=== PATIENT | male | born 1935 | race Caucasian/White ===

== ENCOUNTER 2016-11-27 15:15 | Inpatient (IN) | payer OTHER ==
--- NOTE | 2016-11-27 16:25 | PDOC ---
History of Present Illness <Eli Rand - Last Filed: 11/27/16 20:18> - History of Present Illness Initial Comments: 11/27/16 18:07 The patient is a 72 year old male, with a significant past medical history of non-insulin dependent diabetes, hypertension, CAD s/p stents x2 s/p CABG x 3 ( 2012), hyperlipidemia, BPH, and osteoarthritis, who presents to the emergency department with hematuria noticed 4 days ago and left lower quadrant abdominal pain today. The patient reports noticing blood in his urine 4 days ago, but denies any hematuria since. The patient reports experiencing intermittent LLQ pain prior to the hematuria, but was prompted to come to the ED when the LLQ pain returned today. The patient denies any flank pain or radiation of pain to his groin. He reports his last normal BM was yesterday. He denies chest pain, shortness of breath, headache and dizziness. He denies fever, chills, nausea, vomit, diarrhea and constipation. He denies dysuria, frequency, urgency. Allergies: NKDA Social history: daily 1.5 pack tobacco smoker +65 years, occasional alcohol consumption PCP - Dr. Symone Lin <Amanda Fajardo - Last Filed: 11/27/16 20:29> - General Chief Complaint: Pain Stated Complaint: BLOOD IN THE URINE,STOMACH PAIN Time Seen by Provider: 11/27/16 16:23 Past History - Past Medical History Cardiac Disorders: Yes ([place] in 2005) Diabetes: Yes HTN: Yes Hypercholesterolemia: Yes - Surgical History Cardiac Surgery: Yes (stent(?)-patient not certain) Orthopedic Surgery: Yes (Both knee cartilage) - Psycho/Social/Smoking Cessation Hx Anxiety: No Suicidal Ideation: No Smoking Status: Yes Smoking History: Current every day smoker Have you smoked in the past 12 months: Yes Number of Cigarettes Smoked Daily: 40 Information on smoking cessation initiated: No 'Breaking Loose' booklet given: 09/25/12 Hx Alcohol Use: Yes <Eli Rand - Last Filed: 11/27/16 20:18> <Amanda Fajardo - Last Filed: 11/27/16 20:29> - Past Medical History Allergies/Adverse Reactions: Allergies Allergy/AdvReac Type Severity Reaction Status Date / Time No Known Allergies Allergy Verified 11/27/16 15:18 Home Medications: Ambulatory Orders Aspirin [ASA] 81 mg PO DAILY 09/25/12 Lisinopril [Prinivil] 10 mg PO DAILY 09/25/12 Atorvastatin Ca [Lipitor] 40 mg PO HS 11/27/16 Metformin HCl [Metformin HCl ER] 500 mg PO BID 11/27/16 Metoprolol Succinate [Toprol Xl] 50 mg PO DAILY 11/27/16 Review of Systems - Review of Systems Able to Perform ROS?: Yes Comments:: 11/27/16 18:08 CONSTITUTIONAL: Absent: fever, chills, diaphoresis, generalized weakness, malaise, loss of appetite HEENT: Absent: rhinorrhea, nasal congestion, throat pain, throat swelling, difficulty swallowing, mouth swelling, ear pain, eye pain, visual Changes CARDIOVASCULAR: Absent: chest pain, syncope, palpitations, irregular heart rate, lightheadedness , peripheral edema RESPIRATORY: Absent: cough, shortness of breath, dyspnea with exertion, orthopnea, wheezing, stridor, hemoptysis GASTROINTESTINAL: (+) LLQ abdominal pain,Absent: abdominal distension, nausea, vomiting, diarrhea , constipation, melena, hematochezia GENITOURINARY: (+) hematuria,Absent: dysuria, frequency, urgency, hesitancy, flank pain, genital pain MUSCULOSKELETAL: Absent: myalgia, arthralgia, joint swelling SKIN: Absent: rash, itching, pallor HEMATOLOGIC/IMMUNOLOGIC: Absent: easy bleeding, easy bruising, lymphadenopathy, frequent infections ENDOCRINE: Absent: unexplained weight gain, unexplained weight loss, heat intolerance, cold intolerance NEUROLOGIC: Absent: headache, focal weakness or paresthesias, dizziness, unsteady gait, seizure, mental status changes, bladder or bowel incontinence PSYCHIATRIC: Absent: anxiety, depression, suicidal or homicidal ideation, hallucinations. <Amanda Fajardo - Last Filed: 11/27/16 20:29> *Physical Exam - Vital Signs Last Vital Signs Temp Pulse Resp BP Pulse Ox 97.8 F 68 20 135/43 98 11/27/16 15:18 11/27/16 15:18 11/27/16 15:18 11/27/16 15:18 11/27/16 15:18 <Eli Rand - Last Filed: 11/27/16 20:18> - Vital Signs Last Vital Signs Temp Pulse Resp BP Pulse Ox 97.8 F 68 20 135/43 98 11/27/16 15:18 11/27/16 15:18 11/27/16 15:18 11/27/16 15:18 11/27/16 15:18 - Physical Exam Comments: 11/27/16 18:08 GENERAL: Well developed, well nourished. Awake and alert. Conversant. No acute distress. HEENT: Normocephalic, atraumatic. PERRLA, EOMI. No conjunctival pallor. Sclera are non- icteric. Moist mucous membranes. Oropharynx is clear. NECK: Supple. Full ROM. No JVD. Carotid pulses 2+ and symmetric, without bruits. No thyromegaly. No lymphadenopathy. CARDIOVASCULAR: Regular rate and rhythm. No murmurs, rubs, or gallops. Distal pulses are 2+ and symmetric. PULMONARY: No evidence of respiratory distress. Lungs clear to auscultation bilaterally. No wheezing, rales or rhonchi. ABDOMINAL: Protuberant. Soft. Non-tender. Non-distended. No rebound or guarding. No organomegaly. Normoactive bowel sounds. MUSCULOSKELETAL Normal range of motion at all joints. No bony deformities or tenderness. No CVA tenderness. EXTREMITIES: (+) pedal edema. No cyanosis. No clubbing. No edema. No calf tenderness. SKIN: Warm and dry. Normal capillary refill. No rashes. No jaundice. NEUROLOGICAL: Alert, awake, appropriate. Cranial nerves 2-12 intact. Normoreflexic in the upper and lower extremities. Normal speech. Toes are down-going bilaterally. Gait is normal without ataxia. PSYCHIATRIC: Cooperative. Good eye contact. Appropriate mood and affect. <Amanda Fajardo - Last Filed: 11/27/16 20:29> ED Treatment Course - LABORATORY CBC & Chemistry Diagram: 11/27/16 16:10 11/27/16 16:10 <Eli Rand - Last Filed: 11/27/16 20:18> - LABORATORY CBC & Chemistry Diagram: 11/27/16 16:10 11/27/16 16:10 - ADDITIONAL ORDERS Additional order review: Laboratory Results 11/27/16 16:50 Urine Color Yellow Urine Appearance Clear Urine pH 5.0 Ur Specific [place] 1.025 Urine Protein 1+ H Urine Glucose (UA) Negative Urine Ketones Negative Urine Blood 3+ H Urine Nitrite Negative Urine Bilirubin Negative Urine Urobilinogen Negative Ur Leukocyte Esterase Trace H Urine RBC 9 Urine WBC 1 11/27/16 16:10 RBC 4.44 MCV 90.4 MCHC 33.4 RDW 14.2 MPV 8.6 Neutrophils % 67.6 Lymphocytes % 20.1 D Monocytes % 8.6 Eosinophils % 3.0 Basophils % 0.7 <Amanda Fajardo - Last Filed: 11/27/16 20:29> Medical Decision Making - Medical Decision Making 11/27/16 20:24 Dr. Lin was paged at 20:08 via phone answering service requesting a call back for doctor to doctor consult. Dr. Liu Zuluaga was paged at 20:24 via phone answering service requesting a call back for doctor to doctor consult regarding admission of Dr. Lin's patient. 11/27/16 20:29 Dr. Zuluaga returned the call and the patient's case was discussed. <Amanda Fajardo - Last Filed: 11/27/16 20:29> *DC/Admit/Observation/Transfer - Discharge Dispostion Admit: Yes <Eli Rand - Last Filed: 11/27/16 20:18> - Attestations Scribe Attestion: 11/27/16 18:09 Documentation prepared by Amanda Fajardo, acting as registered medical assistant for Eil Rand MD <Amanda Fajardo - Last Filed: 11/27/16 20:29> Diagnosis at time of Disposition: Urinary tract obstruction by kidney stone, Hematuria Hydronephrosis Qualifiers: Hydronephrosis type: unspecified Qualified Code(s): N13.30 - Unspecified hydronephrosis Diabetes Qualifiers: Diabetes mellitus type: type 2 Diabetes mellitus complication status: with unspecified complications Diabetes mellitus senior care insulin use: without senior care use Qualified Code(s): E11.8 - Type 2 diabetes mellitus with unspecified complications - Referrals Referrals: Symone Lin MD [Primary Care Provider] -
[2016-11-27 17:35] LABS: BASOPHIL 0.7 % (0-2.0); MCH 30.2 pg (25.7-33.7); MCHC 33.4 g/dl (32.0-35.9); MEAN CELL VOLUME 90.4 fl (80-96); MEAN PLT VOLUME 8.6 fl (7.5-11.1); NEUTROPHILS 67.6 % (42.8-82.8); PLATELET COUNT 195 K/MM3 (134-434); RDW 14.2 % (11.9-15.9); WHITE BLOOD COUNT 8.6 K/mm3 (4.0-10.0)
[2016-11-27] MEDS: SODIUM CHLORIDE 1,000 ML IV SCH (17:37)
[2016-11-27 17:39] LABS: URINE APPEARANCE CLEAR; URINE BILIRUBIN NEGATIVE (NEGATIVE); URINE COLOR YELLOW; URINE GLUCOSE (UA) NEGATIVE (NEGATIVE); URINE KETONE NEGATIVE (NEGATIVE); URINE NITRITE NEGATIVE (NEGATIVE); URINE UROBILINOGEN NEGATIVE E.U./dl (0.2-1.0)
[2016-11-27 17:40] LABS: URINE BLOOD 3+ (NEGATIVE); URINE LEUK ESTERASE TRACE (NEGATIVE); URINE PROTEIN 1+ (NEGATIVE)
[2016-11-27 17:41] LABS: URINE RBC 9 /hpf (0-3); URINE WBC 1 /hpf (3-5)
[2016-11-27 18:09] LABS: ALBUMIN 3.5 g/dl (3.4-5.0); BILIRUBIN,TOTAL 0.2 mg/dL (0.2-1.0); CALCIUM 8.8 mg/dL (8.5-10.1); CREATININE 1.2 mg/dL (0.7-1.3); TOT PROT 7.2 g/dl (6.4-8.2)
[2016-11-27] MEDS ORDERED: KETOROLAC TROMETHAMINE 30 MG/1 ML VIAL IVPUSH ONE (20:15)
[2016-11-27] MEDS ORDERED: HYDROmorphone HCL CARPU-JECT 1 MG/1 ML DISP.SYRIN IVPUSH ONE (20:16)
[2016-11-27] MEDS ORDERED: IBUPROFEN 400 MG TABLET (FP) PO ONE ×2 (20:16→20:21)
[2016-11-27] MEDS ORDERED: HYDROmorphone HCL CARPU-JECT 1 MG/1 ML DISP.SYRIN ONE (20:21)
[2016-11-27] MEDS ORDERED: TAMSULOSIN HCL 0.4 MG CAP.ER.24H (FP) PO ONE (20:30)
[2016-11-27] MEDS ORDERED: TAMSULOSIN HCL 0.4 MG CAP.ER.24H (FP) ONE (21:35)
[2016-11-27] MEDS ORDERED: HYDROmorphone HCL CARPU-JECT 1 MG/1 ML DISP.SYRIN IVPUSH PRN (21:36)
[2016-11-27] MEDS ORDERED: DOCUSATE SODIUM 100 MG CAPSULE (FP) PO PRN (21:36)
[2016-11-27 23:48] VITALS: BMI 32.3
[2016-11-27] MEDS ORDERED: INSULIN (NOVOLOG) ASPART 100 UNITS/ML 10ML VIAL ONE (23:51)
[2016-11-27] MEDS: ATORVASTATIN CA 40 MG TABLET (FP) PO SCH (23:54)
[2016-11-27] MEDS: HEPARIN NA (PORCINE) 5,000 UNITS/ML 1ML VIAL SQ SCH (23:54)
[2016-11-28] MEDS: INSULIN SLIDING SCALE (NOVOLOG) 1 VIAL SQ SCH ×3 (06:27→17:22)
[2016-11-28] MEDS: SODIUM CHLORIDE 1,000 ML IV SCH ×3 (07:01→23:38)
[2016-11-28 08:20] LABS: BASOPHIL 0.6 % (0-2.0); EOSINOPHIL 3.5 % (0-4.5); MCH 30.2 pg (25.7-33.7); MCHC 33.4 g/dl (32.0-35.9); MEAN CELL VOLUME 90.6 fl (80-96); MEAN PLT VOLUME 9.1 fl (7.5-11.1); NEUTROPHILS 56.3 % (42.8-82.8); PLATELET COUNT 127 K/MM3 (134-434); RDW 13.9 % (11.9-15.9); WHITE BLOOD COUNT 4.8 K/mm3 (4.0-10.0)
[2016-11-28 08:32] LABS: ALBUMIN 2.7 g/dl (3.4-5.0); BILIRUBIN,TOTAL 0.3 mg/dL (0.2-1.0); CALCIUM 7.9 mg/dL (8.5-10.1); CREATININE 1.2 mg/dL (0.7-1.3)
[2016-11-28 08:33] LABS: TOT PROT 5.5 g/dl (6.4-8.2)
--- NOTE | 2016-11-28 09:21 | HP ---
Admitting History and Physical - Primary Care Physician PCP: Symone Lin M - Admission Chief Complaint: abd pain History of Present Illness: ER HISTORY - History of Present Illness Initial Comments: 11/27/16 18:07 The patient is a 72 year old male, with a significant past medical history of non-insulin dependent diabetes, hypertension, CAD s/p stents x2 s/p CABG x 3 ( 2012), hyperlipidemia, BPH, and osteoarthritis, who presents to the emergency department with hematuria noticed 4 days ago and left lower quadrant abdominal pain today. The patient reports noticing blood in his urine 4 days ago, but denies any hematuria since. The patient reports experiencing intermittent LLQ pain prior to the hematuria, but was prompted to come to the ED when the LLQ pain returned today. The patient denies any flank pain or radiation of pain to his groin. He reports his last normal BM was yesterday. He denies chest pain, shortness of breath, headache and dizziness. He denies fever, chills, nausea, vomit, diarrhea and constipation. He denies dysuria, frequency, urgency. Allergies: NKDA Social history: daily 1.5 pack tobacco smoker +65 years, occasional alcohol consumption PCP - Dr. Symone Lin Pt seen by me on the floors H/O CAD, LBBB, HTN, COPD, DM, BPH admitted for abd pain and hematuria. Today has less pain CT abd/pelvis shows distal left ureteral obstructing stone History Source: Patient Limitations to Obtaining History: No Limitations - Past Medical History Cardiovascular: Yes: CAD, HTN, Hyperlipdemia Pulmonary: Yes: COPD Gastrointestinal: Yes: GERD Renal/: Yes: BPH Endocrine: Yes: Diabetes Mellitus - Smoking History Smoking history: Current every day smoker Have you smoked in the past 12 months: Yes Aproximately how many cigarettes per day: 40 - Alcohol/Substance Use Hx Alcohol Use: Yes Home Medications - Allergies Allergies/Adverse Reactions: Allergies Allergy/AdvReac Type Severity Reaction Status Date / Time No Known Allergies Allergy Verified 11/27/16 15:18 - Home Medications Home Medications: Ambulatory Orders Aspirin [ASA] 81 mg PO DAILY 09/25/12 Lisinopril [Prinivil] 10 mg PO DAILY 09/25/12 Atorvastatin Ca [Lipitor] 40 mg PO HS 11/27/16 Metformin HCl [Metformin HCl ER] 500 mg PO BID 11/27/16 Metoprolol Succinate [Toprol Xl] 50 mg PO DAILY 11/27/16 Review of Systems - Review of Systems Constitutional: denies: Chills, Fever, Loss of Appetite Cardiovascular: denies: Chest Pain Respiratory: denies: Cough Gastrointestinal: reports: Abdominal Pain Genitourinary: reports: Hematuria. denies: Burning, Discharge, Dysuria, Flank Pain, Frequency Physical Examination Vital Signs: Vital Signs Temperature 97.5 F L 11/28/16 06:31 Pulse Rate 57 L 11/28/16 06:31 Respiratory Rate 18 11/28/16 06:31 Blood Pressure 144/77 11/28/16 06:31 O2 Sat by Pulse Oximetry (%) 98 11/27/16 23:40 Constitutional: Yes: No Distress, Calm Cardiovascular: Yes: Regular Rate and Rhythm Respiratory: Yes: Diminished Gastrointestinal: Yes: Normal Bowel Sounds, Soft, Abdomen, Obese. No: Distention, Tenderness Renal/: Yes: CVA Tenderness - Left. No: CVA Tenderness - Right Edema: No Neurological: Yes: Alert, Oriented Psychiatric: Yes: Alert, Oriented Labs: CBC, BMP 11/28/16 06:00 11/28/16 06:00 Imaging - Results Chest X-ray: Image Reviewed (clear) Cat Scan: Report Reviewed EKG: Image Reviewed (Sinus, LBBB-- same as 2012) Problem List - Problems (1) Diabetes Code(s): E11.9 - TYPE 2 DIABETES MELLITUS WITHOUT COMPLICATIONS Qualifiers: Diabetes mellitus type: type 2 Diabetes mellitus complication status: with unspecified complications Diabetes mellitus salvage determiner insulin use: without salvage determiner use Qualified Code(s): E11.8 - Type 2 diabetes mellitus with unspecified complications; Z79.4 - senior living (current) use of insulin (2) Hematuria Code(s): R31.9 - HEMATURIA, UNSPECIFIED (3) Hydronephrosis Code(s): N13.30 - UNSPECIFIED HYDRONEPHROSIS Qualifiers: Hydronephrosis type: unspecified Qualified Code(s): N13.30 - Unspecified hydronephrosis (4) Urinary tract obstruction by kidney stone Code(s): N20.0 - CALCULUS OF KIDNEY N13.8 - OTHER OBSTRUCTIVE AND REFLUX UROPATHY (5) Hepatic lesion Code(s): K76.9 - LIVER DISEASE, UNSPECIFIED Assessment/Plan PLAN -- iv antibiotics -- iv fluids -- check urine culture -- eval -- will order sono liver for liver lesions, check AFP -- check BGM. A1C -- DVT prophylaxis-- SCD --medically cleared patient for procedure
[2016-11-28 10:23] LABS: INR 1.04 (0.82-1.09); PROTHROMBIN TIME (PATIENT) 11.5 SEC (9.98-11.88)
[2016-11-28 10:26] LABS: ACTIVATED PTT 30.1 SECONDS (26.9-34.4)
[2016-11-28] MEDS: LISINOPRIL 10 MG TABLET (FP) PO SCH (11:10)
[2016-11-28] MEDS: ASPIRIN COATED 81 MG TABLET.EC PO SCH (11:10)
[2016-11-28] MEDS: HEPARIN NA (PORCINE) 5,000 UNITS/ML 1ML VIAL SQ SCH ×2 (11:10→23:39)
[2016-11-28] MEDS: METOPROLOL SUCCINATE 50 MG TAB.SR.24H (FP) PO SCH (11:10)
--- NOTE | 2016-11-28 12:04 | EKG ---
Test Reason : Blood Pressure : / mmHG Vent. Rate : 057 BPM Atrial Rate : 057 BPM P-R Int : 228 ms QRS Dur : 176 ms QT Int : 516 ms P-R-T Axes : 021 023 149 degrees QTc Int : 502 ms SINUS BRADYCARDIA WITH SINUS ARRHYTHMIA WITH 1ST DEGREE A-V BLOCK LEFT BUNDLE BRANCH BLOCK ABNORMAL ECG WHEN COMPARED WITH ECG OF 27-SEP-2012 08:58, PREMATURE VENTRICULAR COMPLEXES ARE NO LONGER PRESENT UT INTERVAL HAS INCREASED T WAVE VARIATION Confirmed by HAYES WHITT MD ([id number]) on 11/28/2016 12:04:37 PM Referred By: Confirmed By:HAYES WHITT MD
[2016-11-28] MEDS ORDERED: INSULIN (NOVOLOG) ASPART 100 UNITS/ML 10ML VIAL ONE (17:01)
--- NOTE | 2016-11-28 18:44 | CON.GU ---
Consult Consult Specialty:: Urology Referred by:: Zan Reason for Consultation:: L ureteral calculus - History of Present Illness Chief Complaint: hematuria and LLQ abd pain History of Present Illness: 81 yo m pres to ER c/o 4 day hx of LLQ abd pain and gross hematuria found to have 8 mm L distal ureteral calculus w hydronephrosis and cons req. - History Source History Provided By: Patient, Medical Record Limitations to Obtaining History: No Limitations - Past Medical History Cardio/Vascular: Yes: CAD, Hyperlipdemia Renal/: Yes: Hematuria Endocrine: Yes: Diabetes Mellitus - Past Surgical History Past Surgical History: Yes: CABG (coronary stents x 2) - Alcohol/Substance Use Hx Alcohol Use: Yes - Smoking History Smoking history: Current every day smoker Aproximately how many cigarettes per day: 40 Home Medications - Allergies Allergies/Adverse Reactions: Allergies Allergy/AdvReac Type Severity Reaction Status Date / Time No Known Allergies Allergy Verified 11/27/16 15:18 - Home Medications Home Medications: Ambulatory Orders Aspirin [ASA] 81 mg PO DAILY 09/25/12 Lisinopril [Prinivil] 10 mg PO DAILY 09/25/12 Atorvastatin Ca [Lipitor] 40 mg PO HS 11/27/16 Metformin HCl [Metformin HCl ER] 500 mg PO BID 11/27/16 Metoprolol Succinate [Toprol Xl] 50 mg PO DAILY 11/27/16 Review of Systems - Review of Systems Gastrointestinal: reports: Abdominal Pain Genitourinary: reports: Hematuria Physical Exam- Vital Signs: Vital Signs Temperature 98.1 F 11/28/16 17:07 Pulse Rate 59 L 11/28/16 17:07 Respiratory Rate 18 11/28/16 17:07 Blood Pressure 116/44 11/28/16 17:07 O2 Sat by Pulse Oximetry (%) 98 11/28/16 09:30 Constitutional: Yes: Well Nourished, No Distress, Calm Eyes: Yes: WNL, Conjunctiva Clear, EOM Intact HENT: Yes: WNL, Atraumatic, Normocephalic Neck: Yes: WNL, Supple, Trachea Midline Cardiovascular: Yes: WNL, Regular Rate and Rhythm Respiratory: Yes: WNL, Regular, CTA Bilaterally Gastrointestinal: Yes: WNL, Normal Bowel Sounds, Soft, Tenderness (LLQ) Pelvis: Yes: Bladder Non Palpable Testicles: Yes: WNL, Descended Scrotum: Yes: WNL Penis: Yes: WNL Prostate Exam: Yes: WNL Integumentary: Yes: WNL Labs: CBC, BMP 11/28/16 06:00 11/28/16 06:00 Imaging - Results Cat Scan: Report Reviewed Assessment/Plan Imp; 8 mm L distal ureteral calculus, L hydronephrosis, hematuria Rec: cysto L ureteroscopic laser lithotripsy and L JJ stent insertion 11/29.
[2016-11-28] MEDS: ATORVASTATIN CA 40 MG TABLET (FP) PO SCH (23:39)
[2016-11-29] MEDS: INSULIN SLIDING SCALE (NOVOLOG) 1 VIAL SQ SCH ×3 (06:07→17:08)
[2016-11-29] MEDS: SODIUM CHLORIDE 1,000 ML IV SCH ×2 (06:08→17:09)
[2016-11-29 07:42] LABS: MCH 30.2 pg (25.7-33.7); MCHC 33.1 g/dl (32.0-35.9); MEAN CELL VOLUME 91.3 fl (80-96); MEAN PLT VOLUME 8.7 fl (7.5-11.1); PLATELET COUNT 125 K/MM3 (134-434); RDW 14.2 % (11.9-15.9); WHITE BLOOD COUNT 5.1 K/mm3 (4.0-10.0)
[2016-11-29 08:35] LABS: ANION GAP 8 (8-16); CO2 25 mmol/L (21-32); GLUCOSE,RANDOM 151 mg/dL (74-106); SGOT/AST 17 U/L (15-37); SGPT/ALT 14 U/L (12-78)
[2016-11-29 08:37] LABS: ALK PHOS 160 U/L (45-117); BILIRUBIN,TOTAL 0.6 mg/dL (0.2-1.0); TOT PROT 6.2 g/dl (6.4-8.2)
--- NOTE | 2016-11-29 09:58 | CON.CARD ---
Consult Consult Specialty:: Cardiology Referred by:: Carey Clark MD Reason for Consultation:: Pre-procedure cardiovascular evaluation - History of Present Illness Chief Complaint: LLQ pain History of Present Illness: The patient is a 81 year old male, with a significant past medical history of non-insulin dependent diabetes, hypertension, CAD s/p stents x2 s/p CABG x 3 ( 2012), hyperlipidemia, BPH, and osteoarthritis, who presents to the emergency department with hematuria and left lower quadrant abdominal pain referable to 8 mm L distal ureteral calculus w hydronephrosis planned for cystoscopy, L ureteroscopic laser lithotripsy and L JJ stent insertion. Regarding cardiovascular sxs, he reports chronic exertional fatigue and positional dizziness bending over, but denies chest pain, shortness of breath, near or true syncope, palpitations, orthopnea, PND or LE edema. Allergies: NKDA Social history: daily 1.5 pack tobacco smoker +65 years, occasional alcohol consumption PCP - Dr. Symone Lin - History Source History Provided By: Patient Limitations to Obtaining History: No Limitations - Past Medical History Cardio/Vascular: Yes: CAD, HTN, Hyperlipdemia Pulmonary: Yes: COPD Gastrointestinal: Yes: GERD Renal/: Yes: BPH Endocrine: Yes: Diabetes Mellitus - Past Surgical History Past Surgical History: Yes: CABG (coronary stents x 2), Stent - Alcohol/Substance Use Hx Alcohol Use: Yes - Smoking History Smoking history: Current every day smoker Have you smoked in the past 12 months: Yes Aproximately how many cigarettes per day: 40 Home Medications - Allergies Allergies/Adverse Reactions: Allergies Allergy/AdvReac Type Severity Reaction Status Date / Time No Known Allergies Allergy Verified 11/27/16 15:18 - Home Medications Home Medications: Ambulatory Orders Aspirin [ASA] 81 mg PO DAILY 09/25/12 Lisinopril [Prinivil] 10 mg PO DAILY 09/25/12 Atorvastatin Ca [Lipitor] 40 mg PO HS 11/27/16 Metformin HCl [Metformin HCl ER] 500 mg PO BID 11/27/16 Metoprolol Succinate [Toprol Xl] 50 mg PO DAILY 11/27/16 Review of Systems - Review of Systems Gastrointestinal: reports: Abdominal Pain Genitourinary: reports: Hematuria Vital Signs: Vital Signs Temperature 97.8 F 11/29/16 05:00 Pulse Rate 58 L 11/29/16 05:00 Respiratory Rate 20 11/29/16 05:00 Blood Pressure 118/61 11/29/16 05:00 O2 Sat by Pulse Oximetry (%) 98 11/28/16 20:47 Constitutional: Yes: No Distress, Calm Neck: Yes: Supple Respiratory: Yes: Regular, CTA Bilaterally Gastrointestinal: Yes: Normal Bowel Sounds, Soft, Abdomen, Obese Renal/: Yes: Hematuria Cardiovascular: Yes: Regular Rate and Rhythm JVD: No Carotid Bruit: No Heart Sounds: Yes: S1, S2 Murmur: Yes: Systolic Murmur, Grade 1 Edema: Yes Edema: LLE: Trace, RLE: Trace - Other Data Labs, Other Data: CBC, BMP 11/29/16 06:00 11/29/16 06:00 INR, PTT INR 1.04 (0.82-1.09) 11/28/16 08:40 SB @ 57 1st deg AVB LBBB Imaging - Results Chest X-ray: Report Reviewed (NAD) Problem List - Problems (1) Diabetes Code(s): E11.9 - TYPE 2 DIABETES MELLITUS WITHOUT COMPLICATIONS Qualifiers: Diabetes mellitus type: type 2 Diabetes mellitus complication status: with unspecified complications Diabetes mellitus senior living insulin use: without rn outpatient surgery use Qualified Code(s): E11.8 - Type 2 diabetes mellitus with unspecified complications; 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 (2) Hematuria Code(s): R31.9 - HEMATURIA, UNSPECIFIED (3) Hydronephrosis Code(s): N13.30 - UNSPECIFIED HYDRONEPHROSIS Qualifiers: Hydronephrosis type: unspecified Qualified Code(s): N13.30 - Unspecified hydronephrosis (4) Urinary tract obstruction by kidney stone Code(s): N20.0 - CALCULUS OF KIDNEY N13.8 - OTHER OBSTRUCTIVE AND REFLUX UROPATHY (5) Hyperlipidemia associated with type 2 diabetes mellitus Code(s): E11.69 - TYPE 2 DIABETES MELLITUS WITH OTHER SPECIFIED COMPLICATION E78.5 - HYPERLIPIDEMIA, UNSPECIFIED (6) Hypertensive cardiovascular disease Code(s): I11.9 - HYPERTENSIVE HEART DISEASE WITHOUT HEART FAILURE Qualifiers: Heart failure presence: without heart failure Qualified Code(s): I11.9 - Hypertensive heart disease without heart failure (7) Coronary artery disease Code(s): I25.10 - ATHSCL HEART DISEASE OF [place] CORONARY ARTERY W/O ANG PCTRS Qualifiers: Coronary Disease-Associated Artery/Lesion type: [place] artery [place] vs. transplanted heart: [place] heart Associated angina: without angina Qualified Code(s): I25.10 - Atherosclerotic heart disease of [place] coronary artery without angina pectoris (8) Status post coronary artery stent placement Code(s): Z95.5 - PRESENCE OF CORONARY ANGIOPLASTY IMPLANT AND GRAFT (9) Status post coronary artery bypass graft Code(s): Z95.1 - PRESENCE OF AORTOCORONARY BYPASS GRAFT (10) Pre-operative cardiovascular examination Code(s): Z01.810 - ENCOUNTER FOR PREPROCEDURAL CARDIOVASCULAR EXAMINATION Assessment/Plan 1. Pre-operative cardiovascular evaluation prior to planned 2. Cystoscopy, L ureteroscopic laser lithotripsy and L JJ stent insertion for 8 mm L distal ureteral calculus w hydronephrosis and hematuria 3. CAD s/p PCI (stent), CABG, angina pectoris 4. HTN/HCVD 5. Type 2 DM 6. Hyperlipidemia 7. Complete LBBB P:1. Given absence of sxs of acute coronary syndrome, decompensated CHF or malignant arrhythmia, there are no absolute CV contraindications against proceeding with procedure, analgesia as needed, IV hydration 2. Hold ASA dario-procedure, continue lisinopril 10 qd, Lipitor 40 qd, Toprol XL 50 qd 3. May undergo further CV-evaluation as outpatient including echo and P-Myoview 4. DVT prophylaxis 5. Thank you for consultative opportunity
[2016-11-29] MEDS: METOPROLOL SUCCINATE 50 MG TAB.SR.24H (FP) PO SCH (11:04)
[2016-11-29] MEDS: HEPARIN NA (PORCINE) 5,000 UNITS/ML 1ML VIAL SQ SCH (11:05)
[2016-11-29] MEDS: ASPIRIN COATED 81 MG TABLET.EC PO SCH (11:05)
[2016-11-29] MEDS: LISINOPRIL 10 MG TABLET (FP) PO SCH (11:06)
--- NOTE | 2016-11-29 11:12 | PN ---
Progress Note, Physician Chief Complaint: no distress Has no pain in left abdomen - Current Medication List Current Medications: Active Medications Aspirin (Ecotrin -) 81 mg PO DAILY [facility] Last Admin: 11/29/16 11:05 Dose: Not Given Atorvastatin Calcium (Lipitor -) 40 mg PO HS [facility] Last Admin: 11/28/16 23:39 Dose: 40 mg Docusate Sodium (Colace -) 100 mg PO BID PRN PRN Reason: CONSTIPATION Heparin Sodium (Porcine) (Heparin -) 5,000 unit SQ BID [facility] Last Admin: 11/29/16 11:05 Dose: Not Given Hydromorphone HCl (Dilaudid Injection -) 1 mg IVPUSH Q4H PRN PRN Reason: PAIN Last Admin: 11/29/16 00:08 Dose: 1 mg Sodium Chloride (Normal Saline -) 1,000 mls @ 150 mls/hr IV ASDIR [facility] Last Admin: 11/29/16 06:08 Dose: 150 mls/hr Insulin Aspart (Novolog Vial Sliding Scale -) 0 vial SQ TIDAC [facility] PRN Reason: Protocol Last Admin: 11/29/16 06:07 Dose: Not Given Lisinopril (Prinivil) 10 mg PO DAILY [facility] Last Admin: 11/29/16 11:06 Dose: Not Given Metoprolol Succinate (Toprol Xl -) 50 mg PO DAILY [facility] Last Admin: 11/29/16 11:04 Dose: 50 mg - Objective Vital Signs: Vital Signs Temperature 98.2 F 11/29/16 10:54 Pulse Rate 65 11/29/16 10:54 Respiratory Rate 18 11/29/16 10:54 Blood Pressure 126/58 11/29/16 10:54 O2 Sat by Pulse Oximetry (%) 98 11/28/16 20:47 Constitutional: Yes: No Distress Cardiovascular: Yes: Regular Rate and Rhythm Respiratory: Yes: CTA Bilaterally Gastrointestinal: Yes: Normal Bowel Sounds, Soft, Abdomen, Obese. 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 (2) Hematuria Code(s): R31.9 - HEMATURIA, UNSPECIFIED (3) Hydronephrosis Code(s): N13.30 - UNSPECIFIED HYDRONEPHROSIS Qualifiers: Hydronephrosis type: unspecified Qualified Code(s): N13.30 - Unspecified hydronephrosis (4) Urinary tract obstruction by kidney stone Code(s): N20.0 - CALCULUS OF KIDNEY N13.8 - OTHER OBSTRUCTIVE AND REFLUX UROPATHY (5) Hepatic lesion Code(s): K76.9 - LIVER DISEASE, UNSPECIFIED Assessment/Plan PLAN -- iv antibiotics -- iv fluids -- check urine culture -- eval appreciated -- cardiology eval appreciated -- sono abdomen noted-- large liver mass-- GI eval -- AFP pending -- DVT prophylaxis-- SCD --medically cleared patient for procedure
[2016-11-29] MEDS ORDERED: LIDOCAINE HCL/PF 2% SDV 5ML VIAL ONE (13:04)
[2016-11-29] MEDS ORDERED: PROPOFOL 20 ML ONE ×2 (13:04)
[2016-11-29] MEDS ORDERED: MIDAZOLAM HCL 2 MG/2 ML SINGLE DOSE VIAL ONE (13:04)
[2016-11-29] MEDS ORDERED: SUCCINYLCHOLINE CHLORIDE 200 MG/10 ML VIAL ONE (13:04)
--- NOTE | 2016-11-29 13:13 | OP ---
Operative Note - Note: Operative Date: 11/29/16 Pre-Operative Diagnosis: L ureteral calculus Operation: cystoscopy L ureteroscopic laser lithotripsy, stone basketing and L JJ stent insertion Findings: L distal ureteral calculus, L hydronephrosis Post-Operative Diagnosis: Same as Pre-op Surgeon: Sang Dickey Anesthesiologist/PARK NATURALIST: Eli López Anesthesia: General Specimens Removed: L ureteral calculi Drains & Tubes with Location: 6 fr 26 cm L JJ stent Operative Report Dictated: Yes
[2016-11-29] MEDS ORDERED: ceFAZolin SODIUM 1 GM VIAL IVPB ONE (13:43)
[2016-11-29] MEDS ORDERED: HYDROmorphone HCL CARPU-JECT 1 MG/1 ML DISP.SYRIN IVPUSH PRN (13:48)
[2016-11-29] MEDS ORDERED: ceFAZolin SODIUM 1 GM VIAL ONE (13:52)
[2016-11-29] MEDS ORDERED: HYDROmorphone HCL CARPU-JECT 2 MG/1 ML DISP.SYRIN ONE (15:31)
[2016-11-29] MEDS: oxyCODONE HCL 5 MG TABLET PO PRN (16:59)
[2016-11-29] MEDS: ACETAMINOPHEN 325 MG TABLET (FP) PO PRN (17:00)
[2016-11-29] MEDS: cefTRIAXone 1 GM/50 ML BAG (PRE-DOCKED) IVPB SCH (17:09)
--- NOTE | 2016-11-29 18:28 | CON.GI ---
Consult Consult Specialty:: Gastroenterology Referred by:: Dr Carey Carr Reason for Consultation:: liver mass - History of Present Illness History of Present Illness: 81 y/o male was admiited because of a right ureteral stone. On routine catscan, he was noted to have a 6cm complex mass in the right of the liver. He has right flank pain even after the procedure for which he was recently medicated with Percocet. He never had a colonoscopy in the past. - Past Medical History Cardio/Vascular: Yes: CAD, HTN, Hyperlipdemia Pulmonary: Yes: COPD Gastrointestinal: Yes: GERD Renal/: Yes: BPH Endocrine: Yes: Diabetes Mellitus - Past Surgical History Past Surgical History: Yes: CABG (coronary stents x 2), Stent - Alcohol/Substance Use Hx Alcohol Use: Yes - Smoking History Smoking history: Current every day smoker Have you smoked in the past 12 months: Yes Aproximately how many cigarettes per day: 40 Home Medications - Allergies Allergies/Adverse Reactions: Allergies Allergy/AdvReac Type Severity Reaction Status Date / Time No Known Allergies Allergy Verified 11/27/16 15:18 - Home Medications Home Medications: Ambulatory Orders Aspirin [ASA] 81 mg PO DAILY 09/25/12 Lisinopril [Prinivil] 10 mg PO DAILY 09/25/12 Atorvastatin Ca [Lipitor] 40 mg PO HS 11/27/16 Metformin HCl [Metformin HCl ER] 500 mg PO BID 11/27/16 Metoprolol Succinate [Toprol Xl] 50 mg PO DAILY 11/27/16 Family Disease History - Family Disease History Family History: Unable to Obtain Review of Systems - Review of Systems Constitutional: denies: Fever Eyes: denies: Blind Spots HENT: denies: Difficult Swallowing Neck: denies: Decreased ROM Cardiovascular: denies: Chest Pain Respiratory: denies: Cough Genitourinary: reports: Other (right flank pain) Physical Exam-GI Vital Signs: Vital Signs Temperature 97.7 F 11/29/16 17:00 Pulse Rate 55 L 11/29/16 17:00 Respiratory Rate 18 11/29/16 17:00 Blood Pressure 153/74 11/29/16 17:00 O2 Sat by Pulse Oximetry (%) 94 L 11/29/16 17:00 Constitutional: Yes: Well Nourished Eyes: Yes: Conjunctiva Clear HENT: Yes: Atraumatic Neck: Yes: Supple Cardiovascular: Yes: Regular Rate and Rhythm Respiratory: Yes: CTA Bilaterally ...Palpate: Yes: Soft. No: Firm/Rigid, Guarding, Hepatomegaly, Mass, Pulsatile Mass, Splenomegaly, Tenderness Genitourinary: Yes: CVA Tenderness - Right Labs: CBC, BMP 11/29/16 06:00 11/29/16 06:00 INR, PTT INR 1.04 (0.82-1.09) 11/28/16 08:40 Problem List - Problems (1) Liver neoplasm Assessment/Plan: r/o primary vs metastatic disease R> cea, ca19-9, AFP for colonoscopy and EGD if negative will Interventional radiology for liver biopsy
[2016-11-29] MEDS ORDERED: POLYETHYLENE GLYCOL 3350 255 GM BTL PO ONE (19:05)
[2016-11-29] MEDS: ATORVASTATIN CA 40 MG TABLET (FP) PO SCH (22:11)
[2016-11-30] MEDS: oxyCODONE HCL 5 MG TABLET PO PRN ×2 (01:06→15:14)
[2016-11-30] MEDS: SODIUM CHLORIDE 1,000 ML IV SCH ×3 (01:09→22:01)
[2016-11-30] MEDS: INSULIN SLIDING SCALE (NOVOLOG) 1 VIAL SQ SCH ×3 (06:31→16:53)
[2016-11-30] MEDS: LISINOPRIL 10 MG TABLET (FP) PO SCH (09:56)
[2016-11-30] MEDS: cefTRIAXone 1 GM/50 ML BAG (PRE-DOCKED) IVPB SCH (09:57)
[2016-11-30] MEDS: METOPROLOL SUCCINATE 50 MG TAB.SR.24H (FP) PO SCH (09:57)
--- NOTE | 2016-11-30 11:26 | PN ---
Progress Note, Physician Chief Complaint: no distress Has no pain in left abdomen s/p lithotripsy and ureteral stent placement - Current Medication List Current Medications: Active Medications Acetaminophen (Tylenol -) 650 mg PO Q6H PRN PRN Reason: FEVER OR PAIN Last Admin: 11/29/16 17:00 Dose: 650 mg Atorvastatin Calcium (Lipitor -) 40 mg PO HS [facility] Last Admin: 11/29/16 22:11 Dose: 40 mg Bisacodyl (Dulcolax -) 10 mg PO ONCE ONE Stop: 11/30/16 16:06 Ceftriaxone Sodium (Rocephin 1gm Ivpb (Pre-Docked)) 1 gm IVPB DAILY [facility] Last Admin: 11/30/16 09:57 Dose: 1 gm Sodium Chloride (Normal Saline -) 1,000 mls @ 100 mls/hr IV ASDIR [facility] Last Admin: 11/30/16 01:09 Dose: 100 mls/hr Insulin Aspart (Novolog Vial Sliding Scale -) 0 vial SQ TIDAC [facility] PRN Reason: Protocol Last Admin: 11/30/16 11:15 Dose: 3 units Lisinopril (Prinivil) 10 mg PO DAILY [facility] Last Admin: 11/30/16 09:56 Dose: 10 mg Metoprolol Succinate (Toprol Xl -) 50 mg PO DAILY [facility] Last Admin: 11/30/16 09:57 Dose: 50 mg Oxycodone HCl (Roxicodone -) 10 mg PO Q6H PRN Last Admin: 11/30/16 01:06 Dose: 10 mg Polyethylene Glycol (Miralax (For Bowel Prep) -) 255 gm PO ONCE ONE Stop: 11/30/16 14:06 Sodium Phosphate (Fleet Adult Rectal Enema -) 133 ml [place] Q5H [facility] Stop: 12/01/16 16:08 - Objective Vital Signs: Vital Signs Temperature 98.1 F 11/30/16 06:00 Pulse Rate 63 11/30/16 06:00 Respiratory Rate 20 11/30/16 06:00 Blood Pressure 149/69 11/30/16 06:00 O2 Sat by Pulse Oximetry (%) 94 L 11/29/16 21:00 Constitutional: Yes: No Distress Cardiovascular: Yes: Regular Rate and Rhythm Respiratory: Yes: Diminished Gastrointestinal: Yes: Normal Bowel Sounds, Soft, Abdomen, Obese. No: Distention, Tenderness Edema: Yes Edema: LLE: Trace, RLE: Trace Labs: CBC, BMP 11/29/16 06:00 11/29/16 06:00 INR, PTT INR 1.04 (0.82-1.09) 11/28/16 08:40 Problem List - Problems (1) Diabetes Code(s): E11.9 - TYPE 2 DIABETES MELLITUS WITHOUT COMPLICATIONS Qualifiers: Diabetes mellitus type: type 2 Diabetes mellitus complication status: with unspecified complications Diabetes mellitus skilled nursing insulin use: without choir director use Qualified Code(s): E11.8 - Type 2 diabetes mellitus with unspecified complications; Z79.4 - rock cutter (current) use of insulin (2) Hematuria Code(s): R31.9 - HEMATURIA, UNSPECIFIED (3) Hydronephrosis Code(s): N13.30 - UNSPECIFIED HYDRONEPHROSIS Qualifiers: Hydronephrosis type: unspecified Qualified Code(s): N13.30 - Unspecified hydronephrosis (4) Urinary tract obstruction by kidney stone Code(s): N20.0 - CALCULUS OF KIDNEY N13.8 - OTHER OBSTRUCTIVE AND REFLUX UROPATHY (5) Hepatic lesion Code(s): K76.9 - LIVER DISEASE, UNSPECIFIED Assessment/Plan PLAN -- iv antibiotics -- iv fluids -- s/ stent placement -- GI eval noted -- AFP elevated -- will consult IR for biopsy -- d/w pt about liver lesion and possible hepatocellular CA
--- NOTE | 2016-11-30 12:04 | PN ---
Progress Note, Physician History of Present Illness: POD#1 post cystoscopy, L ureteroscopic laser lithotripsy and L JJ stent insertion. Now planned for EGD/conolonoscpy and liver biopsy to assess etiology of liver mass. Denies chest pain, dyspnea, palpitations. - Current Medication List Current Medications: Active Medications Acetaminophen (Tylenol -) 650 mg PO Q6H PRN PRN Reason: FEVER OR PAIN Last Admin: 11/29/16 17:00 Dose: 650 mg Atorvastatin Calcium (Lipitor -) 40 mg PO HS [facility] Last Admin: 11/29/16 22:11 Dose: 40 mg Bisacodyl (Dulcolax -) 10 mg PO ONCE ONE Stop: 11/30/16 16:06 Ceftriaxone Sodium (Rocephin 1gm Ivpb (Pre-Docked)) 1 gm IVPB DAILY [facility] Last Admin: 11/30/16 09:57 Dose: 1 gm Sodium Chloride (Normal Saline -) 1,000 mls @ 100 mls/hr IV ASDIR [facility] Last Admin: 11/30/16 01:09 Dose: 100 mls/hr Insulin Aspart (Novolog Vial Sliding Scale -) 0 vial SQ TIDAC [facility] PRN Reason: Protocol Last Admin: 11/30/16 11:15 Dose: 3 units Lisinopril (Prinivil) 10 mg PO DAILY [facility] Last Admin: 11/30/16 09:56 Dose: 10 mg Metoprolol Succinate (Toprol Xl -) 50 mg PO DAILY [facility] Last Admin: 11/30/16 09:57 Dose: 50 mg Oxycodone HCl (Roxicodone -) 10 mg PO Q6H PRN Last Admin: 11/30/16 01:06 Dose: 10 mg Polyethylene Glycol (Miralax (For Bowel Prep) -) 255 gm PO ONCE ONE Stop: 11/30/16 14:06 Sodium Phosphate (Fleet Adult Rectal Enema -) 133 ml [place] Q5H [facility] Stop: 12/01/16 16:08 - Objective Vital Signs: Vital Signs Temperature 98.1 F 11/30/16 06:00 Pulse Rate 63 11/30/16 06:00 Respiratory Rate 20 11/30/16 06:00 Blood Pressure 149/69 11/30/16 06:00 O2 Sat by Pulse Oximetry (%) 94 L 11/29/16 21:00 Constitutional: Yes: No Distress, Calm Neck: Yes: Supple Cardiovascular: Yes: Regular Rate and Rhythm Respiratory: Yes: Regular, Diminished Gastrointestinal: Yes: Normal Bowel Sounds, Soft Edema: No Labs: CBC, BMP 11/29/16 06:00 11/29/16 06:00 INR, PTT INR 1.04 (0.82-1.09) 11/28/16 08:40 Problem List - Problems (1) Diabetes Code(s): E11.9 - TYPE 2 DIABETES MELLITUS WITHOUT COMPLICATIONS Qualifiers: Diabetes mellitus type: type 2 Diabetes mellitus complication status: with unspecified complications Diabetes mellitus manager long term care insulin use: without manager long term care use Qualified Code(s): E11.8 - Type 2 diabetes mellitus with unspecified complications; Z79.4 - roasterman (current) use of insulin (2) Hematuria Code(s): R31.9 - HEMATURIA, UNSPECIFIED (3) Hydronephrosis Code(s): N13.30 - UNSPECIFIED HYDRONEPHROSIS Qualifiers: Hydronephrosis type: unspecified Qualified Code(s): N13.30 - Unspecified hydronephrosis (4) Urinary tract obstruction by kidney stone Code(s): N20.0 - CALCULUS OF KIDNEY N13.8 - OTHER OBSTRUCTIVE AND REFLUX UROPATHY (5) Hyperlipidemia associated with type 2 diabetes mellitus Code(s): E11.69 - TYPE 2 DIABETES MELLITUS WITH OTHER SPECIFIED COMPLICATION E78.5 - HYPERLIPIDEMIA, UNSPECIFIED (6) Hypertensive cardiovascular disease Code(s): I11.9 - HYPERTENSIVE HEART DISEASE WITHOUT HEART FAILURE Qualifiers: Heart failure presence: without heart failure Qualified Code(s): I11.9 - Hypertensive heart disease without heart failure (7) Coronary artery disease Code(s): I25.10 - ATHSCL HEART DISEASE OF [place] CORONARY ARTERY W/O ANG PCTRS Qualifiers: Coronary Disease-Associated Artery/Lesion type: [place] artery [place] vs. transplanted heart: [place] heart Associated angina: without angina Qualified Code(s): I25.10 - Atherosclerotic heart disease of [place] coronary artery without angina pectoris (8) Status post coronary artery stent placement Code(s): Z95.5 - PRESENCE OF CORONARY ANGIOPLASTY IMPLANT AND GRAFT (9) Status post coronary artery bypass graft Code(s): Z95.1 - PRESENCE OF AORTOCORONARY BYPASS GRAFT (11) Status post laser lithotripsy of ureteral calculus Code(s): Z98.890 - OTHER SPECIFIED POSTPROCEDURAL STATES Assessment/Plan 1. POD#1 cystoscopy, L ureteroscopic laser lithotripsy and L JJ stent insertion for 8 mm L distal ureteral calculus w hydronephrosis and hematuria stable CV- max 2. CAD s/p PCI (stent), CABG, angina pectoris 3. HTN/HCVD 4. Type 2 DM 5. Hyperlipidemia 6. Complete LBBB 7. Liver mass r/o neoplasm P:1. Analgesia as needed, IV hydration, empiric abx 2. Hold ASA dario-procedure, continue lisinopril 10 qd, Lipitor 40 qd, Toprol XL 50 qd 3. May undergo further CV-evaluation as outpatient including echo and P-Myoview 4. DVT prophylaxis
[2016-11-30] MEDS ORDERED: POLYETHYLENE GLYCOL 3350 255 GM BTL PO ONE (14:05)
--- NOTE | 2016-11-30 14:19 | OP ---
DATE OF OPERATION: 11/29/2016 PROCEDURE: 1. Cystoscopy. 2. Left ureteroscopic laser lithotripsy. 3. Stone basketing. 4. Left double-J insertion. PREOPERATIVE DIAGNOSIS: 1. Left distal ureteral calculus. 2. Left hydronephrosis. 3. Hematuria. POSTOPERATIVE DIAGNOSIS: 1. Left distal ureteral calculus. 2. Left hydronephrosis. 3. Hematuria. SURGEON: Sang Dickey MD SENIOR ENLISTED ADVISOR: None. ANESTHESIA: General via laryngeal mask. ANESTHESIOLOGIST: SPECIMENS: Left ureteral calculi. CULTURES: None. DRAINS: 6-[place], 26-cm left double-J stent. ESTIMATED BLOOD LOSS: Negligible. COMPLICATIONS: None. PROCEDURE: The patient was brought into the operating room and placed on the operating table in the supine position. After the administration of general anesthesia via laryngeal mask, intravenous antibiotics were administered and the genitals and perineum were prepped and draped in the usual sterile manner. The 22-[place] cystoscope was inserted into the anterior urethra after dilating the urethral meatus from 22 to 28 [place]. The anterior urethra was normal. The prostatic urethra was normal. The bladder was entered and thoroughly inspected. There were no foreign bodies, tumors, stones or inflammation. Both ureteral orifices were in their usual locations with clear efflux on the right and diminished efflux on the left. The left ureteral orifice was cannulated with a 0.038 guidewire, which was advanced to the level of the left renal pelvis under fluoroscopic and direct visual guidance. The bladder was emptied and the cystoscope removed. The ureteroscope was inserted alongside the guidewire into the distal ureter where a large stone was seen. The 360-micron laser fiber was inserted. Laser lithotripsy was done; 0.8 okeefe at a rate of 8 was used to fragment the stone into pieces. Now, the laser fiber was removed. The stone basket was inserted and all stone fragments were removed using the basket. Now, the ureteroscope was removed. The cystoscope was back-loaded, and a 6-[place] open-end ureteral catheter was inserted. A retrograde pyelogram was done and demonstrated moderate left hydronephrosis. There was no extravasation of contrast from the kidney or ureter. There were no additional stones. The 6-[place], 26-cm left double-J stent was now inserted over the guidewire under direct visual and fluoroscopic guidance, leaving one coil in the upper pole calyx and one coil in the bladder. The bladder was emptied and the cystoscope removed. The stent was secured to the penis with a suture and a Tegaderm. The patient tolerated the procedure well and was transferred to the recovery room in stable condition. He will be followed in the office Sunday for stent removal. Elizabeth [id number]
[2016-11-30] MEDS ORDERED: BISACODYL 5 MG TABLET.DR (FP) PO ONE ×2 (16:05→19:00)
[2016-11-30] MEDS: ACETAMINOPHEN 325 MG TABLET (FP) PO PRN (18:46)
[2016-11-30] MEDS: ATORVASTATIN CA 40 MG TABLET (FP) PO SCH (22:00)
[2016-12-01] MEDS: ACETAMINOPHEN 325 MG TABLET (FP) PO PRN ×3 (02:04→21:59)
[2016-12-01] MEDS: INSULIN SLIDING SCALE (NOVOLOG) 1 VIAL SQ SCH ×3 (06:06→18:39)
[2016-12-01 06:46] LABS: BASOPHIL 0.6 % (0-2.0); EOSINOPHIL 3.4 % (0-4.5); MCH 30.3 pg (25.7-33.7); MEAN CELL VOLUME 91.9 fl (80-96); MEAN PLT VOLUME 9.1 fl (7.5-11.1); NEUTROPHILS 63.2 % (42.8-82.8); PLATELET COUNT 123 K/MM3 (134-434); RDW 14.1 % (11.9-15.9)
[2016-12-01 07:00] LABS: ALBUMIN 2.9 g/dl (3.4-5.0); ANION GAP 10 (8-16); CALCIUM 8.1 mg/dL (8.5-10.1); CO2 26 mmol/L (21-32); GLUCOSE,RANDOM 128 mg/dL (74-106)
[2016-12-01 07:05] LABS: ALK PHOS 156 U/L (45-117); BILIRUBIN,TOTAL 0.5 mg/dL (0.2-1.0); SGOT/AST 17 U/L (15-37); SGPT/ALT 14 U/L (12-78); TOT PROT 6.2 g/dl (6.4-8.2)
[2016-12-01] MEDS: SODIUM PHOSPHATE/NA BIPHOS 133 ML ENEMA PR SCH ×3 (09:34→16:50)
--- NOTE | 2016-12-01 10:31 | PN ---
Progress Note (short form) - Note Progress Note: Subjective Patient seen and examined. Chart reviewed. Chief complaint pain at the penis Passing small amount of blood Denies abdominal pain No cp or SOB. Objective VS: Last Vital Signs Temp Pulse Resp BP Pulse Ox 97.5 F L 64 20 147/71 96 12/01/16 06:00 12/01/16 09:28 12/01/16 09:28 12/01/16 09:28 11/30/16 20:46 Labs: CBC, BMP 12/01/16 05:00 12/01/16 05:00 Problem List - Problems (1) Diabetes Code(s): E11.9 - TYPE 2 DIABETES MELLITUS WITHOUT COMPLICATIONS Qualifiers: Diabetes mellitus type: type 2 Diabetes mellitus complication status: with unspecified complications Diabetes mellitus buttermaker continuous churn insulin use: without buttermaker continuous churn use Qualified Code(s): E11.8 - Type 2 diabetes mellitus with unspecified complications; Z79.4 - penitentiary (current) use of insulin (2) Hematuria Code(s): R31.9 - HEMATURIA, UNSPECIFIED (3) Hydronephrosis Code(s): N13.30 - UNSPECIFIED HYDRONEPHROSIS Qualifiers: Hydronephrosis type: unspecified Qualified Code(s): N13.30 - Unspecified hydronephrosis (4) Urinary tract obstruction by kidney stone Code(s): N20.0 - CALCULUS OF KIDNEY N13.8 - OTHER OBSTRUCTIVE AND REFLUX UROPATHY (5) Hepatic lesion Code(s): K76.9 - LIVER DISEASE, UNSPECIFIED Physical Exam Constitutional: Yes: No Distress Cardiovascular: Yes: Regular Rate and Rhythm Respiratory: Yes: Diminished Gastrointestinal: Yes: Normal Bowel Sounds, Soft, Abdomen, Obese. No: Distention, Tenderness Edema: Yes Edema: LLE: Trace, RLE: Trace Assessment and Plan -- iv antibiotics -- iv fluids -- s/ stent placement -- pain controlled -- urology to follow -- liver biopsy and endoscopy to be planned -- will discuss with Dr. Dickey -- will follow Documentation prepared by Lorena Mccabe, acting as a medical lab assistant for Mavis Zuluaga MD.
[2016-12-01] MEDS: oxyCODONE HCL 5 MG TABLET PO PRN ×2 (10:51→22:00)
[2016-12-01] MEDS: LISINOPRIL 10 MG TABLET (FP) PO SCH (11:30)
[2016-12-01] MEDS: cefTRIAXone 1 GM/50 ML BAG (PRE-DOCKED) IVPB SCH (11:30)
[2016-12-01] MEDS: METOPROLOL SUCCINATE 50 MG TAB.SR.24H (FP) PO SCH (11:31)
--- NOTE | 2016-12-01 12:05 | PN ---
Progress Note, Physician History of Present Illness: POD#2 post cystoscopy, L ureteroscopic laser lithotripsy and L JJ stent insertion with some hematuria. Now planned for EGD/conolonoscpy and liver biopsy to assess etiology of liver mass. Denies chest pain, dyspnea, palpitations. - Current Medication List Current Medications: Active Medications Acetaminophen (Tylenol -) 650 mg PO Q6H PRN PRN Reason: FEVER OR PAIN Last Admin: 12/01/16 10:49 Dose: 650 mg Atorvastatin Calcium (Lipitor -) 40 mg PO HS [facility] Last Admin: 11/30/16 22:00 Dose: 40 mg Ceftriaxone Sodium (Rocephin 1gm Ivpb (Pre-Docked)) 1 gm IVPB DAILY [facility] Last Admin: 12/01/16 11:30 Dose: 1 gm Sodium Chloride (Normal Saline -) 1,000 mls @ 100 mls/hr IV ASDIR [facility] Last Admin: 11/30/16 22:01 Dose: 100 mls/hr Insulin Aspart (Novolog Vial Sliding Scale -) 0 vial SQ TIDAC [facility] PRN Reason: Protocol Last Admin: 12/01/16 06:06 Dose: Not Given Lisinopril (Prinivil) 10 mg PO DAILY [facility] Last Admin: 12/01/16 11:30 Dose: 10 mg Metoprolol Succinate (Toprol Xl -) 50 mg PO DAILY [facility] Last Admin: 12/01/16 11:31 Dose: 50 mg Oxycodone HCl (Roxicodone -) 10 mg PO Q6H PRN Last Admin: 12/01/16 10:51 Dose: 10 mg Sodium Phosphate (Fleet Adult Rectal Enema -) 133 ml [place] Q5H [facility] Stop: 12/01/16 16:08 Last Admin: 12/01/16 09:34 Dose: 133 ml - Objective Vital Signs: Vital Signs Temperature 97.5 F L 12/01/16 06:00 Pulse Rate 64 12/01/16 09:28 Respiratory Rate 20 12/01/16 09:28 Blood Pressure 147/71 12/01/16 09:28 O2 Sat by Pulse Oximetry (%) 96 11/30/16 20:46 Constitutional: Yes: No Distress, Calm Neck: Yes: Supple Cardiovascular: Yes: Regular Rate and Rhythm Respiratory: Yes: Regular, Diminished Gastrointestinal: Yes: Normal Bowel Sounds, Soft, Abdomen, Obese Edema: Yes Edema: LLE: Trace, RLE: Trace Labs: CBC, BMP 12/01/16 05:00 12/01/16 05:00 INR, PTT INR 1.04 (0.82-1.09) 11/28/16 08:40 Problem List - Problems (1) Diabetes Code(s): E11.9 - TYPE 2 DIABETES MELLITUS WITHOUT COMPLICATIONS Qualifiers: Diabetes mellitus type: type 2 Diabetes mellitus complication status: with unspecified complications Diabetes mellitus reimbursement consultant insulin use: without reimbursement consultant use Qualified Code(s): E11.8 - Type 2 diabetes mellitus with unspecified complications; Z79.4 - [facility] (current) use of insulin (2) Hematuria Code(s): R31.9 - HEMATURIA, UNSPECIFIED (3) Hydronephrosis Code(s): N13.30 - UNSPECIFIED HYDRONEPHROSIS Qualifiers: Hydronephrosis type: unspecified Qualified Code(s): N13.30 - Unspecified hydronephrosis (4) Urinary tract obstruction by kidney stone Code(s): N20.0 - CALCULUS OF KIDNEY N13.8 - OTHER OBSTRUCTIVE AND REFLUX UROPATHY (5) Hyperlipidemia associated with type 2 diabetes mellitus Code(s): E11.69 - TYPE 2 DIABETES MELLITUS WITH OTHER SPECIFIED COMPLICATION E78.5 - HYPERLIPIDEMIA, UNSPECIFIED (6) Hypertensive cardiovascular disease Code(s): I11.9 - HYPERTENSIVE HEART DISEASE WITHOUT HEART FAILURE Qualifiers: Heart failure presence: without heart failure Qualified Code(s): I11.9 - Hypertensive heart disease without heart failure (7) Coronary artery disease Code(s): I25.10 - ATHSCL HEART DISEASE OF [place] CORONARY ARTERY W/O ANG PCTRS Qualifiers: Coronary Disease-Associated Artery/Lesion type: [place] artery [place] vs. transplanted heart: [place] heart Associated angina: without angina Qualified Code(s): I25.10 - Atherosclerotic heart disease of [place] coronary artery without angina pectoris (8) Status post coronary artery stent placement Code(s): Z95.5 - PRESENCE OF CORONARY ANGIOPLASTY IMPLANT AND GRAFT (9) Status post coronary artery bypass graft Code(s): Z95.1 - PRESENCE OF AORTOCORONARY BYPASS GRAFT (11) Status post laser lithotripsy of ureteral calculus Code(s): Z98.890 - OTHER SPECIFIED POSTPROCEDURAL STATES Assessment/Plan 1. POD#2 cystoscopy, L ureteroscopic laser lithotripsy and L JJ stent insertion for 8 mm L distal ureteral calculus w hydronephrosis and hematuria stable CV- max 2. CAD s/p PCI (stent), CABG, angina pectoris 3. HTN/HCVD 4. Type 2 DM 5. Hyperlipidemia 6. Complete LBBB 7. Liver mass r/o neoplasm P:1. Analgesia as needed, IV hydration, empiric abx 2. Hold ASA dario-procedure, continue lisinopril 10 qd, Lipitor 40 qd, Toprol XL 50 qd 3. May undergo further CV-evaluation as outpatient including echo and P-Myoview 4. DVT prophylaxis 5. F/u EGD/colonoscopy results, may require liver biopsy if unrevealing
--- NOTE | 2016-12-01 14:07 | PATH ---
Surgical Pathology Report Patient Name: AJ SORIA Med. Rec. #: [id number] /Age/Gender: 1935 (Age: 81) / M Account: [id number] Location: [facility] MED/SURG Taken: 11/29/2016 Received: 11/30/2016 Reported: 12/01/2016 Physicians: Su Navarro M.D. Specimen(s) Received LEFT URETERAL STONES Clinical History Left urethral calculi Final Diagnosis STONES, LEFT URETER, EXTRACTION: CALCULI (GROSS EXAM). SPECIMEN SENT FOR CHEMICAL ANALYSIS. Electronically Signed Jaun Huston M.D. Gross Description Received fresh labeled "left ureteral stones" is a 1.0 x 0.7 x 0.3 cm aggregate of ochoa, irregular to fragmented calculi. The specimen sent for chemical analysis. 11/30/2016 [facility]
[2016-12-01] MEDS ORDERED: PROPOFOL 20 ML ONE (16:29)
--- NOTE | 2016-12-01 17:22 | PN ---
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 Biopsies taken Colon with small polyps-likely benign adenomas. Biopsied No evidence of malignancy With AFP >500, high likelihood that the liver lesion is HCC FF
[2016-12-01] MEDS: SODIUM CHLORIDE 1,000 ML IV SCH ×2 (18:40→23:10)
[2016-12-01] MEDS: ZOLPIDEM TARTRATE 5 MG TABLET PO PRN (22:01)
[2016-12-01] MEDS: ATORVASTATIN CA 40 MG TABLET (FP) PO SCH (22:01)
[2016-12-02 00:07] LABS: HBeAG Negative (Negative); HEP B SURFACE AB Non Reactive (.); HEP BE AB Negative (Negative)
[2016-12-02] MEDS: oxyCODONE HCL 5 MG TABLET PO PRN (03:10)
[2016-12-02] MEDS ORDERED: INSULIN (NOVOLOG) ASPART 100 UNITS/ML 10ML VIAL ONE (06:17)
[2016-12-02] MEDS: INSULIN SLIDING SCALE (NOVOLOG) 1 VIAL SQ SCH ×3 (06:34→17:26)
[2016-12-02] MEDS: SODIUM CHLORIDE 1,000 ML IV SCH ×2 (07:34→18:44)
[2016-12-02] MEDS: LISINOPRIL 10 MG TABLET (FP) PO SCH (09:06)
[2016-12-02] MEDS: cefTRIAXone 1 GM/50 ML BAG (PRE-DOCKED) IVPB SCH (09:07)
[2016-12-02] MEDS: METOPROLOL SUCCINATE 50 MG TAB.SR.24H (FP) PO SCH (09:07)
--- NOTE | 2016-12-02 12:00 | PN ---
Progress Note (short form) - Note Progress Note: pt seen/ examined sitting in chair denies pain today passing urine without difficulty afebrile requests ambien for sleep Vital Signs Temp 97.4 F L 12/02/16 09:00 Pulse 64 12/02/16 09:00 Resp 20 12/02/16 09:00 BP 111/46 12/02/16 09:00 Pulse Ox 95 12/02/16 09:00 Intake & Output 12/01/16 12/01/16 12/02/16 11:59 23:59 11:59 Intake Total 1220 2700 100 Output Total 500 Balance 720 2700 100 Intake: IV 1100 2300 Normal Saline - 1,000 ml 1100 1600 @ 100 mls/hr IV ASDIR [facility] Rx#:[id number] IVPB 100 100 Oral 120 300 Output: Urine 500 Void 500 Other: Voiding Method Bedside Commode Toilet Urinal # Unmeasured Voids Void 2 Bowel Movement Yes No Active Medications Acetaminophen (Tylenol -) 650 mg PO Q6H PRN PRN Reason: FEVER OR PAIN Last Admin: 12/01/16 21:59 Dose: 650 mg Atorvastatin Calcium (Lipitor -) 40 mg PO HS [facility] Last Admin: 12/01/16 22:01 Dose: 40 mg Ceftriaxone Sodium (Rocephin 1gm Ivpb (Pre-Docked)) 1 gm IVPB DAILY [facility] Last Admin: 12/02/16 09:07 Dose: 1 gm Sodium Chloride (Normal Saline -) 1,000 mls @ 100 mls/hr IV ASDIR [facility] Last Admin: 12/02/16 07:34 Dose: 100 mls/hr Insulin Aspart (Novolog Vial Sliding Scale -) 0 vial SQ TIDAC [facility] PRN Reason: Protocol Last Admin: 12/02/16 11:07 Dose: Not Given Lisinopril (Prinivil) 10 mg PO DAILY [facility] Last Admin: 12/02/16 09:06 Dose: 10 mg Metoprolol Succinate (Toprol Xl -) 50 mg PO DAILY [facility] Last Admin: 12/02/16 09:07 Dose: 50 mg Oxycodone HCl (Roxicodone -) 10 mg PO Q6H PRN Last Admin: 12/02/16 03:10 Dose: 10 mg Zolpidem Tartrate (Ambien -) 5 mg PO HS PRN Last Admin: 12/01/16 22:01 Dose: 5 mg CBC, BMP 12/01/16 05:00 12/01/16 05:00 Problem List - Problems (1) Diabetes Code(s): E11.9 - TYPE 2 DIABETES MELLITUS WITHOUT COMPLICATIONS Qualifiers: Diabetes mellitus type: type 2 Diabetes mellitus complication status: with unspecified complications Diabetes mellitus intermediate insulin use: without terminal gauger supervisor use Qualified Code(s): E11.8 - Type 2 diabetes mellitus with unspecified complications; Z79.4 - terminal system operator (current) use of insulin (2) Hematuria Code(s): R31.9 - HEMATURIA, UNSPECIFIED (3) Hydronephrosis Code(s): N13.30 - UNSPECIFIED HYDRONEPHROSIS Qualifiers: Hydronephrosis type: unspecified Qualified Code(s): N13.30 - Unspecified hydronephrosis (4) Urinary tract obstruction by kidney stone Code(s): N20.0 - CALCULUS OF KIDNEY N13.8 - OTHER OBSTRUCTIVE AND REFLUX UROPATHY (5) Hepatic lesion Code(s): K76.9 - LIVER DISEASE, UNSPECIFIED Physical Exam Constitutional: Yes: No Distress Cardiovascular: Yes: Regular Rate and Rhythm Respiratory: Yes: bilateral breath sounds Gastrointestinal: Yes: Normal Bowel Sounds, Soft, Abdomen, Obese. No: Distention, Tenderness Edema: Yes Edema: LLE: Trace, RLE: Trace Assessment and Plan better continue present care -- iv antibiotics -- iv fluids -- s/ stent placement -- pain control -- urology to follow -- liver biopsy --pending -- clinton haney
[2016-12-02] MEDS ORDERED: DOCUSATE SODIUM 100 MG CAPSULE (FP) PO PRN (12:07)
--- NOTE | 2016-12-02 14:19 | PN ---
Progress Note, Physician Chief Complaint: Events noted Not in distress History of Present Illness: Patient was seen and examined. Awake and alert. Chart was reviewed Denies chest pain, SOB or palpitations - Current Medication List Current Medications: Active Medications Acetaminophen (Tylenol -) 650 mg PO Q6H PRN PRN Reason: FEVER OR PAIN Last Admin: 12/01/16 21:59 Dose: 650 mg Atorvastatin Calcium (Lipitor -) 40 mg PO HS [facility] Last Admin: 12/01/16 22:01 Dose: 40 mg Ceftriaxone Sodium (Rocephin 1gm Ivpb (Pre-Docked)) 1 gm IVPB DAILY [facility] Last Admin: 12/02/16 09:07 Dose: 1 gm Docusate Sodium (Colace -) 100 mg PO Q8H PRN PRN Reason: CONSTIPATION Sodium Chloride (Normal Saline -) 1,000 mls @ 100 mls/hr IV ASDIR [facility] Last Admin: 12/02/16 07:34 Dose: 100 mls/hr Insulin Aspart (Novolog Vial Sliding Scale -) 0 vial SQ TIDAC [facility] PRN Reason: Protocol Last Admin: 12/02/16 11:07 Dose: Not Given Lisinopril (Prinivil) 10 mg PO DAILY [facility] Last Admin: 12/02/16 09:06 Dose: 10 mg Metoprolol Succinate (Toprol Xl -) 50 mg PO DAILY [facility] Last Admin: 12/02/16 09:07 Dose: 50 mg Oxycodone HCl (Roxicodone -) 5 mg PO Q6H PRN PRN Reason: PAIN Zolpidem Tartrate (Ambien -) 5 mg PO HS PRN Last Admin: 12/01/16 22:01 Dose: 5 mg - Objective Vital Signs: Vital Signs Temperature 98 F 12/02/16 13:32 Pulse Rate 61 12/02/16 13:32 Respiratory Rate 20 12/02/16 13:32 Blood Pressure 147/57 12/02/16 13:32 O2 Sat by Pulse Oximetry (%) 95 12/02/16 09:00 Neck: Yes: Supple Cardiovascular: Yes: Regular Rate and Rhythm, S1, S2 Respiratory: Yes: Diminished Gastrointestinal: Yes: Normal Bowel Sounds, Soft, Abdomen, Obese. No: Tenderness Edema: Yes Edema: LLE: Trace, RLE: Trace Labs: CBC, BMP 12/01/16 05:12/01/16 05:00 Problem List - Problems (1) Coronary artery disease Code(s): I25.10 - ATHSCL HEART DISEASE OF [place] CORONARY ARTERY W/O ANG PCTRS Qualifiers: Coronary Disease-Associated Artery/Lesion type: [place] artery [place] vs. transplanted heart: [place] heart Associated angina: without angina Qualified Code(s): I25.10 - Atherosclerotic heart disease of [place] coronary artery without angina pectoris (2) Diabetes Code(s): E11.9 - TYPE 2 DIABETES MELLITUS WITHOUT COMPLICATIONS Qualifiers: Diabetes mellitus type: type 2 Diabetes mellitus complication status: with unspecified complications Diabetes mellitus middle or intermediate school principal insulin use: without middle or intermediate school principal use Qualified Code(s): E11.8 - Type 2 diabetes mellitus with unspecified complications; Z79.4 - correction (current) use of insulin (3) Hematuria Code(s): R31.9 - HEMATURIA, UNSPECIFIED (4) Hepatic lesion Code(s): K76.9 - LIVER DISEASE, UNSPECIFIED (5) Hypertensive cardiovascular disease Code(s): I11.9 - HYPERTENSIVE HEART DISEASE WITHOUT HEART FAILURE Qualifiers: Heart failure presence: without heart failure Qualified Code(s): I11.9 - Hypertensive heart disease without heart failure (6) Status post coronary artery bypass graft Code(s): Z95.1 - PRESENCE OF AORTOCORONARY BYPASS GRAFT (7) Status post coronary artery stent placement Code(s): Z95.5 - PRESENCE OF CORONARY ANGIOPLASTY IMPLANT AND GRAFT (8) Status post laser lithotripsy of ureteral calculus Code(s): Z98.890 - OTHER SPECIFIED POSTPROCEDURAL STATES (9) Urinary tract obstruction by kidney stone Code(s): N20.0 - CALCULUS OF KIDNEY N13.8 - OTHER OBSTRUCTIVE AND REFLUX UROPATHY (10) Liver mass Code(s): R16.0 - HEPATOMEGALY, NOT ELSEWHERE CLASSIFIED Assessment/Plan 1. POD#3 cystoscopy, left ureteroscopic laser lithotripsy and JJ stent insertion for 8 mm distal ureteral calculus w hydronephrosis and hematuria 2. CAD s/p PCI (stent), CABG, angina pectoris 3. HTN/HCVD 4. Type 2 DM 5. Hyperlipidemia 6. Complete LBBB 7. Liver mass r/o neoplasm PLAN: 1. Analgesia as needed, IV hydration and empiric antibiotics 2. Continue Lisinopril 10 mg qd, Lipitor 40 mg qd and Toprol XL 50 mg qd - ASA to be restarted if possible 3. May undergo further cardiovascular evaluation as outpatient including echocardiography and nuclear myocardial perfusion imaging 4. DVT prophylaxis 5. Follow up EGD and biopsy - pathology to follow - GI input noted Further plans are to follow Marvin Wise MD
[2016-12-02] MEDS: ATORVASTATIN CA 40 MG TABLET (FP) PO SCH (21:52)
[2016-12-02] MEDS: ZOLPIDEM TARTRATE 5 MG TABLET PO PRN (21:52)
[2016-12-03] MEDS: INSULIN SLIDING SCALE (NOVOLOG) 1 VIAL SQ SCH ×3 (06:27→17:14)
[2016-12-03] MEDS: SODIUM CHLORIDE 1,000 ML IV SCH (07:01)
[2016-12-03 07:22] LABS: BASOPHIL 0.6 % (0-2.0); EOSINOPHIL 1.5 % (0-4.5); MCHC 33.3 g/dl (32.0-35.9); MEAN CELL VOLUME 90.3 fl (80-96); MEAN PLT VOLUME 9.1 fl (7.5-11.1); NEUTROPHILS 74.6 % (42.8-82.8); PLATELET COUNT 149 K/MM3 (134-434); RDW 14.4 % (11.9-15.9); WHITE BLOOD COUNT 6.9 K/mm3 (4.0-10.0)
[2016-12-03 07:48] LABS: ANION GAP 12 (8-16); BILIRUBIN,TOTAL 0.5 mg/dL (0.2-1.0); CALCIUM 8.2 mg/dL (8.5-10.1); CO2 23 mmol/L (21-32); CREATININE 0.8 mg/dL (0.7-1.3); GLUCOSE,RANDOM 146 mg/dL (74-106); SGOT/AST 21 U/L (15-37); SGPT/ALT 14 U/L (12-78); TOT PROT 6.2 g/dl (6.4-8.2)
[2016-12-03 07:49] LABS: ALK PHOS 174 U/L (45-117)
--- NOTE | 2016-12-03 10:07 | PN ---
Progress Note, Physician Chief Complaint: Events noted Not in distress History of Present Illness: Patient was seen and examined. Awake and alert. Chart was reviewed Denies chest pain, SOB or palpitations - Current Medication List Current Medications: Active Medications Acetaminophen (Tylenol -) 650 mg PO Q6H PRN PRN Reason: FEVER OR PAIN Last Admin: 12/01/16 21:59 Dose: 650 mg Atorvastatin Calcium (Lipitor -) 40 mg PO HS [facility] Last Admin: 12/02/16 21:52 Dose: 40 mg Ceftriaxone Sodium (Rocephin 1gm Ivpb (Pre-Docked)) 1 gm IVPB DAILY [facility] Last Admin: 12/02/16 09:07 Dose: 1 gm Docusate Sodium (Colace -) 100 mg PO Q8H PRN PRN Reason: CONSTIPATION Sodium Chloride (Normal Saline -) 1,000 mls @ 100 mls/hr IV ASDIR [facility] Last Admin: 12/03/16 07:01 Dose: 100 mls/hr Insulin Aspart (Novolog Vial Sliding Scale -) 0 vial SQ TIDAC [facility] PRN Reason: Protocol Last Admin: 12/03/16 06:27 Dose: Not Given Lisinopril (Prinivil) 10 mg PO DAILY [facility] Last Admin: 12/02/16 09:06 Dose: 10 mg Metoprolol Succinate (Toprol Xl -) 50 mg PO DAILY [facility] Last Admin: 12/02/16 09:07 Dose: 50 mg Oxycodone HCl (Roxicodone -) 5 mg PO Q6H PRN PRN Reason: PAIN Zolpidem Tartrate (Ambien -) 5 mg PO HS PRN Last Admin: 12/02/16 21:52 Dose: 5 mg - Objective Vital Signs: Vital Signs Temperature 97.6 F 12/03/16 08:47 Pulse Rate 96 H 12/03/16 08:47 Respiratory Rate 20 12/03/16 08:48 Blood Pressure 137/81 12/03/16 08:47 O2 Sat by Pulse Oximetry (%) 95 12/03/16 08:48 Neck: Yes: Supple Cardiovascular: Yes: Regular Rate and Rhythm, S1, S2 Respiratory: Yes: CTA Bilaterally Gastrointestinal: Yes: Normal Bowel Sounds, Soft, Abdomen, Obese. No: Tenderness Edema: Yes Edema: LLE: Trace, RLE: Trace Labs: CBC, BMP 12/03/16 06:00 12/03/16 06:00 Problem List - Problems (1) Coronary artery disease Code(s): I25.10 - ATHSCL HEART DISEASE OF [place] CORONARY ARTERY W/O ANG PCTRS Qualifiers: Coronary Disease-Associated Artery/Lesion type: [place] artery [place] vs. transplanted heart: [place] heart Associated angina: without angina Qualified Code(s): I25.10 - Atherosclerotic heart disease of [place] coronary artery without angina pectoris (2) Diabetes Code(s): E11.9 - TYPE 2 DIABETES MELLITUS WITHOUT COMPLICATIONS Qualifiers: Diabetes mellitus type: type 2 Diabetes mellitus complication status: with unspecified complications Diabetes mellitus penitentiary insulin use: without penitentiary use Qualified Code(s): E11.8 - Type 2 diabetes mellitus with unspecified complications; Z79.4 - [facility] (current) use of insulin (3) Hematuria Code(s): R31.9 - HEMATURIA, UNSPECIFIED (4) Hepatic lesion Code(s): K76.9 - LIVER DISEASE, UNSPECIFIED (5) Hypertensive cardiovascular disease Code(s): I11.9 - HYPERTENSIVE HEART DISEASE WITHOUT HEART FAILURE Qualifiers: Heart failure presence: without heart failure Qualified Code(s): I11.9 - Hypertensive heart disease without heart failure (6) Status post coronary artery bypass graft Code(s): Z95.1 - PRESENCE OF AORTOCORONARY BYPASS GRAFT (7) Status post coronary artery stent placement Code(s): Z95.5 - PRESENCE OF CORONARY ANGIOPLASTY IMPLANT AND GRAFT (8) Status post laser lithotripsy of ureteral calculus Code(s): Z98.890 - OTHER SPECIFIED POSTPROCEDURAL STATES (9) Urinary tract obstruction by kidney stone Code(s): N20.0 - CALCULUS OF KIDNEY N13.8 - OTHER OBSTRUCTIVE AND REFLUX UROPATHY (10) Liver mass Code(s): R16.0 - HEPATOMEGALY, NOT ELSEWHERE CLASSIFIED Assessment/Plan 1. Post cystoscopy, left ureteroscopic laser lithotripsy and JJ stent insertion for 8 mm distal ureteral calculus w hydronephrosis and hematuria 2. CAD s/p PCI (stent), CABG, angina pectoris 3. HTN/HCVD 4. Type 2 DM 5. Hyperlipidemia 6. Complete LBBB 7. Liver mass r/o neoplasm PLAN: 1. Analgesia as needed, IV hydration and empiric antibiotics 2. Continue Lisinopril, Lipitor and Toprol XL - ASA to be restarted if possible 3. May undergo further cardiovascular evaluation as outpatient including echocardiography and nuclear myocardial perfusion imaging 4. DVT prophylaxis 5. Follow up EGD and biopsy - pathology to follow Further plans are to follow Marvin Wise MD
[2016-12-03] MEDS ORDERED: PT OWN MED DRAWER 7, Y5N ONE (11:05)
[2016-12-03] MEDS: METOPROLOL SUCCINATE 50 MG TAB.SR.24H (FP) PO SCH (11:08)
[2016-12-03] MEDS: cefTRIAXone 1 GM/50 ML BAG (PRE-DOCKED) IVPB SCH (11:08)
[2016-12-03] MEDS: LISINOPRIL 10 MG TABLET (FP) PO SCH (11:08)
--- NOTE | 2016-12-03 11:58 | PN ---
Progress Note (short form) - Note Progress Note: pt seen/ examined sitting in chair denies pain passing urine without difficulty comfortable Vital Signs Temp 97.6 F 12/03/16 08:47 Pulse 96 H 12/03/16 08:47 Resp 20 12/03/16 08:48 BP 137/81 12/03/16 08:47 Pulse Ox 95 12/03/16 08:48 Intake & Output 12/02/16 12/02/16 12/03/16 11:59 23:59 11:59 Intake Total 179 350 4109 Output Total 300 600 Balance 686 783 6817 Intake: IV 600 1200 Normal Saline - 1,000 ml 600 @ 100 mls/hr IV ASDIR [facility] Rx#:[id number] Diprivan - 20 ml UD . [address] Rx#: [id number] IVPB 100 50 50 Oral 300 450 Output: Urine 300 600 Void 300 600 Other: Voiding Method Urinal Urinal Urinal # Unmeasured Voids Void 4 Bowel Movement No Active Medications Acetaminophen (Tylenol -) 650 mg PO Q6H PRN PRN Reason: FEVER OR PAIN Last Admin: 12/01/16 21:59 Dose: 650 mg Atorvastatin Calcium (Lipitor -) 40 mg PO HS [facility] Last Admin: 12/01/16 22:01 Dose: 40 mg Ceftriaxone Sodium (Rocephin 1gm Ivpb (Pre-Docked)) 1 gm IVPB DAILY [facility] Last Admin: 12/02/16 09:07 Dose: 1 gm Sodium Chloride (Normal Saline -) 1,000 mls @ 100 mls/hr IV ASDIR [facility] Last Admin: 12/02/16 07:34 Dose: 100 mls/hr Insulin Aspart (Novolog Vial Sliding Scale -) 0 vial SQ TIDAC [facility] PRN Reason: Protocol Last Admin: 12/02/16 11:07 Dose: Not Given Lisinopril (Prinivil) 10 mg PO DAILY [facility] Last Admin: 12/02/16 09:06 Dose: 10 mg Metoprolol Succinate (Toprol Xl -) 50 mg PO DAILY [facility] Last Admin: 12/02/16 09:07 Dose: 50 mg Oxycodone HCl (Roxicodone -) 10 mg PO Q6H PRN Last Admin: 12/02/16 03:10 Dose: 10 mg Zolpidem Tartrate (Ambien -) 5 mg PO HS PRN Last Admin: 12/01/16 22:01 Dose: 5 mg CBC, BMP 12/03/16 06:00 12/03/16 06:00 Problem List - Problems (1) Diabetes Code(s): E11.9 - TYPE 2 DIABETES MELLITUS WITHOUT COMPLICATIONS Qualifiers: Diabetes mellitus type: type 2 Diabetes mellitus complication status: with unspecified complications Diabetes mellitus termite control technician insulin use: without termite control technician use Qualified Code(s): E11.8 - Type 2 diabetes mellitus with unspecified complications; Z79.4 - nursing home (current) use of insulin (2) Hematuria Code(s): R31.9 - HEMATURIA, UNSPECIFIED (3) Hydronephrosis Code(s): N13.30 - UNSPECIFIED HYDRONEPHROSIS Qualifiers: Hydronephrosis type: unspecified Qualified Code(s): N13.30 - Unspecified hydronephrosis (4) Urinary tract obstruction by kidney stone Code(s): N20.0 - CALCULUS OF KIDNEY N13.8 - OTHER OBSTRUCTIVE AND REFLUX UROPATHY (5) Hepatic lesion Code(s): K76.9 - LIVER DISEASE, UNSPECIFIED Physical Exam Constitutional: Yes: No Distress Cardiovascular: Yes: Regular Rate and Rhythm Respiratory: Yes: bilateral breath sounds Gastrointestinal: Yes: Normal Bowel Sounds, Soft, Abdomen, Obese. No: Distention, Tenderness Edema: Yes Edema: LLE: Trace, RLE: Trace Assessment and Plan better continue present care -- iv antibiotics -- iv fluids-- will d/c now -- s/ stent placement -- pain control -- urology to follow-- will call again -- liver biopsy --pending -- clinton juliann - will follow
[2016-12-03] MEDS ORDERED: INSULIN (NOVOLOG) ASPART 100 UNITS/ML 10ML VIAL ONE (17:09)
--- NOTE | 2016-12-03 19:08 | HOSP ---
Subjective - Review of Symptoms Musculoskeletal: Yes: Other (right hip pain) Physical Examination Vital Signs: Vital Signs Temperature 97.5 F L 12/03/16 17:07 Pulse Rate 64 12/03/16 17:07 Respiratory Rate 20 12/03/16 17:07 Blood Pressure 150/74 12/03/16 17:07 O2 Sat by Pulse Oximetry (%) 95 12/03/16 08:48 Constitutional: Yes: Calm, Obese Eyes: Yes: EOM Intact, PERRL HENT: Yes: Atraumatic, Normocephalic Neck: Yes: Supple. No: Tenderness Cardiovascular: Yes: Regular Rate and Rhythm, S1, S2 Respiratory: Yes: Regular, CTA Bilaterally Gastrointestinal: Yes: Normal Bowel Sounds, Soft, Abdomen, Obese Musculoskeletal: Yes: Other (c/o right buttock/right hip tenderness) Edema: LLE: 2+, RLE: 2+ Peripheral Pulses: Left Radial: 2+, Right Radial: 2+, Left Doralis Pedis: 1+, Right Dorsalis Pedis: 1+ Integumentary: Yes: WNL (No bruises seen in head/neck, buttocks, hips or extremities) Neurological: Yes: Alert, Oriented, Tremors ...Motor Strength: WNL Psychiatric: Yes: Alert, Oriented Labs: CBC, BMP 12/03/16 06:00 12/03/16 06:00 Hospitalist Encounter Assessment: Called to assess a 81 year old male found on the floor by his bed. the fall was unwitnessed. The pt states he came back from the bathroom and got tangles with the IV tubing and pump and slipped and fell. Pt said he fell on his buttocks, he hit his head, but did not loose consciousness . The patient is awake,alert and oriented to time place and person. Pt has no focal neurological deficit. No slurred spec h or facial asymmetry, no dizziness, no confusion, no numbness or tingling, no n/v. Impression: Mechanical fall Plan Head CT w/o contrast Pelvis/Hip Xray Call placed to PCP ( Dr iLu Zuluaga) to inform him of fall and have him follow result. Awaiting call back. fall precaution OOB with assist only Visit type - Emergency Visit Emergency Visit: Yes ED Registration Date: 11/27/16 Care time: The patient presented to the Emergency Department on the above date and was hospitalized for further evaluation of their emergent condition. - New Patient This patient is new to me today: Yes Date on this admission: 12/03/16 - Critical Care Critical Care patient: No
[2016-12-03] MEDS: ATORVASTATIN CA 40 MG TABLET (FP) PO SCH (22:17)
[2016-12-03] MEDS: ZOLPIDEM TARTRATE 5 MG TABLET PO PRN (22:55)
[2016-12-04] MEDS: INSULIN SLIDING SCALE (NOVOLOG) 1 VIAL SQ SCH ×3 (06:37→17:47)
--- NOTE | 2016-12-04 09:58 | PN ---
Progress Note (short form) - Note Progress Note: Subjective Patient seen and examined. Comfortable. Events of yesterday noted Patient fell down ---discussed with patient (patient had mechanical fall) that he was going to bathroom and tripped. Denies chest pain or SOB. Denies headache or dizziness. Afebrile. Objective Last Vital Signs Temp Pulse Resp BP Pulse Ox 97.3 F L 60 20 155/84 96 12/04/16 06:26 12/04/16 06:26 12/04/16 06:26 12/04/16 06:26 12/03/16 21:00 CBC, BMP 12/03/16 06:00 12/03/16 06:00 Laboratory Results - last 24 hr 12/03/16 12/03/16 12/04/16 11:46 17:07 06:36 POC Glucometer [address] Scan and CXR reviewed Physical Exam Constitutional: Yes: No Distress Cardiovascular: Yes: Regular Rate and Rhythm Respiratory: Yes: bilateral breath sounds Gastrointestinal: Yes: Normal Bowel Sounds, Soft, Abdomen, Obese. No: Distention, Tenderness Edema: Yes Edema: LLE: Trace, RLE: Trace Neuro: Alert and oriented x3--- nonfocal Assessment and Plan -- iv antibiotics -- s/ stent placement -- pain control -- urology to follow-- will call again-- still pending. -- liver biopsy --pending-- will contact Dr. Max's office -- clinton haney - will follow - fall precautions discussed with patient. Documentation prepared by Linette Dan, acting as a medical services assistant for Mavis Zuluaga MD. Problem List - Problems (1) Fall Code(s): W19.XXXA - UNSPECIFIED FALL, INITIAL ENCOUNTER
[2016-12-04] MEDS: METOPROLOL SUCCINATE 50 MG TAB.SR.24H (FP) PO SCH (12:30)
[2016-12-04] MEDS: cefTRIAXone 1 GM/50 ML BAG (PRE-DOCKED) IVPB SCH (12:31)
[2016-12-04] MEDS: LISINOPRIL 10 MG TABLET (FP) PO SCH ×2 (14:57→22:05)
[2016-12-04] MEDS: ATORVASTATIN CA 40 MG TABLET (FP) PO SCH (22:05)
[2016-12-04] MEDS: oxyCODONE HCL 5 MG TABLET PO PRN (22:05)
[2016-12-05] MEDS ORDERED: INSULIN (NOVOLOG) ASPART 100 UNITS/ML 10ML VIAL ONE (06:14)
[2016-12-05] MEDS: INSULIN SLIDING SCALE (NOVOLOG) 1 VIAL SQ SCH ×3 (06:28→16:33)
[2016-12-05] MEDS: cefTRIAXone 1 GM/50 ML BAG (PRE-DOCKED) IVPB SCH (09:39)
[2016-12-05] MEDS: LISINOPRIL 10 MG TABLET (FP) PO SCH ×2 (09:39→22:03)
[2016-12-05] MEDS: METOPROLOL SUCCINATE 50 MG TAB.SR.24H (FP) PO SCH (09:39)
--- NOTE | 2016-12-05 11:31 | PN ---
Progress Note, Physician Chief Complaint: Events noted Not in distress S/P liver biopsy - pathology pending History of Present Illness: Patient was seen and examined. Awake and alert. Chart was reviewed Denies chest pain, SOB or palpitations - Current Medication List Current Medications: Active Medications Acetaminophen (Tylenol -) 650 mg PO Q6H PRN PRN Reason: FEVER OR PAIN Last Admin: 12/01/16 21:59 Dose: 650 mg Atorvastatin Calcium (Lipitor -) 40 mg PO HS [facility] Last Admin: 12/04/16 22:05 Dose: 40 mg Ceftriaxone Sodium (Rocephin 1gm Ivpb (Pre-Docked)) 1 gm IVPB DAILY [facility] Last Admin: 12/05/16 09:39 Dose: 1 gm Docusate Sodium (Colace -) 100 mg PO Q8H PRN PRN Reason: CONSTIPATION Insulin Aspart (Novolog Vial Sliding Scale -) 0 vial SQ TIDAC [facility] PRN Reason: Protocol Last Admin: 12/05/16 06:28 Dose: 3 units Lisinopril (Prinivil) 10 mg PO BID [facility] Last Admin: 12/05/16 09:39 Dose: 10 mg Metoprolol Succinate (Toprol Xl -) 50 mg PO DAILY [facility] Last Admin: 12/05/16 09:39 Dose: 50 mg Oxycodone HCl (Roxicodone -) 5 mg PO Q6H PRN PRN Reason: PAIN Last Admin: 12/04/16 22:05 Dose: 5 mg - Objective Vital Signs: Vital Signs Temperature 98.2 F 12/05/16 05:22 Pulse Rate 64 12/05/16 05:22 Respiratory Rate 20 12/05/16 05:22 Blood Pressure 144/75 12/05/16 05:22 O2 Sat by Pulse Oximetry (%) 96 12/04/16 22:00 Neck: Yes: Supple Cardiovascular: Yes: Regular Rate and Rhythm, S1, S2 Respiratory: Yes: CTA Bilaterally Gastrointestinal: Yes: Normal Bowel Sounds, Soft. No: Tenderness Edema: Yes Edema: LLE: Trace, RLE: Trace Labs: CBC, BMP 12/03/16 06:00 12/03/16 06:00 Problem List - Problems (1) Coronary artery disease Code(s): I25.10 - ATHSCL HEART DISEASE OF [place] CORONARY ARTERY W/O ANG PCTRS Qualifiers: Coronary Disease-Associated Artery/Lesion type: [place] artery [place] vs. transplanted heart: [place] heart Associated angina: without angina Qualified Code(s): I25.10 - Atherosclerotic heart disease of [place] coronary artery without angina pectoris (2) Diabetes Code(s): E11.9 - TYPE 2 DIABETES MELLITUS WITHOUT COMPLICATIONS Qualifiers: Diabetes mellitus type: type 2 Diabetes mellitus complication status: with unspecified complications Diabetes mellitus alf insulin use: without alf use Qualified Code(s): E11.8 - Type 2 diabetes mellitus with unspecified complications; Z79.4 - parts counterman (current) use of insulin (3) Hematuria Code(s): R31.9 - HEMATURIA, UNSPECIFIED (4) Hepatic lesion Code(s): K76.9 - LIVER DISEASE, UNSPECIFIED (5) Hypertensive cardiovascular disease Code(s): I11.9 - HYPERTENSIVE HEART DISEASE WITHOUT HEART FAILURE Qualifiers: Heart failure presence: without heart failure Qualified Code(s): I11.9 - Hypertensive heart disease without heart failure (6) Status post coronary artery bypass graft Code(s): Z95.1 - PRESENCE OF AORTOCORONARY BYPASS GRAFT (7) Status post coronary artery stent placement Code(s): Z95.5 - PRESENCE OF CORONARY ANGIOPLASTY IMPLANT AND GRAFT (8) Status post laser lithotripsy of ureteral calculus Code(s): Z98.890 - OTHER SPECIFIED POSTPROCEDURAL STATES (9) Urinary tract obstruction by kidney stone Code(s): N20.0 - CALCULUS OF KIDNEY N13.8 - OTHER OBSTRUCTIVE AND REFLUX UROPATHY (10) Liver mass Code(s): R16.0 - HEPATOMEGALY, NOT ELSEWHERE CLASSIFIED Assessment/Plan 1. Post cystoscopy, left ureteroscopic laser lithotripsy and JJ stent insertion for 8 mm distal ureteral calculus w hydronephrosis and hematuria 2. CAD s/p PCI (stent), CABG, angina pectoris 3. HTN/HCVD 4. Type 2 DM 5. Hyperlipidemia 6. Complete LBBB 7. Liver mass r/o neoplasm s/p biopsy PLAN: 1. Analgesia as needed, IV hydration and empiric antibiotics 2. Continue Lisinopril 10 mg qd, Lipitor 40 mg qd and Toprol XL 50 mg qd - ASA to be restarted if possible 3. May undergo further cardiovascular evaluation as outpatient including echocardiography and nuclear myocardial perfusion imaging 4. DVT prophylaxis 5. Await pathology report Further plans are to follow Marvin Wise MD
--- NOTE | 2016-12-05 11:54 | PN ---
Progress Note, Physician Chief Complaint: Awake and alert no c/o pain Urine output good - Current Medication List Current Medications: Active Medications Acetaminophen (Tylenol -) 650 mg PO Q6H PRN PRN Reason: FEVER OR PAIN Last Admin: 12/01/16 21:59 Dose: 650 mg Atorvastatin Calcium (Lipitor -) 40 mg PO HS [facility] Last Admin: 12/04/16 22:05 Dose: 40 mg Ceftriaxone Sodium (Rocephin 1gm Ivpb (Pre-Docked)) 1 gm IVPB DAILY [facility] Last Admin: 12/05/16 09:39 Dose: 1 gm Docusate Sodium (Colace -) 100 mg PO Q8H PRN PRN Reason: CONSTIPATION Insulin Aspart (Novolog Vial Sliding Scale -) 0 vial SQ TIDAC [facility] PRN Reason: Protocol Last Admin: 12/05/16 06:28 Dose: 3 units Lisinopril (Prinivil) 10 mg PO BID [facility] Last Admin: 12/05/16 09:39 Dose: 10 mg Metoprolol Succinate (Toprol Xl -) 50 mg PO DAILY [facility] Last Admin: 12/05/16 09:39 Dose: 50 mg Oxycodone HCl (Roxicodone -) 5 mg PO Q6H PRN PRN Reason: PAIN Last Admin: 12/04/16 22:05 Dose: 5 mg - Objective Vital Signs: Vital Signs Temperature 98.2 F 12/05/16 05:22 Pulse Rate 64 12/05/16 05:22 Respiratory Rate 20 12/05/16 05:22 Blood Pressure 144/75 12/05/16 05:22 O2 Sat by Pulse Oximetry (%) 96 12/04/16 22:00 Constitutional: Yes: No Distress, Calm Cardiovascular: Yes: Regular Rate and Rhythm Respiratory: Yes: Diminished Gastrointestinal: Yes: Normal Bowel Sounds, Soft, Abdomen, Obese. No: Distention, Tenderness Edema: No Labs: CBC, BMP 12/03/16 06:00 12/03/16 06:00 INR, PTT INR 1.04 (0.82-1.09) 11/28/16 08:40 Problem List - Problems (1) Diabetes Code(s): E11.9 - TYPE 2 DIABETES MELLITUS WITHOUT COMPLICATIONS Qualifiers: Diabetes mellitus type: type 2 Diabetes mellitus complication status: with unspecified complications Diabetes mellitus community education specialist insulin use: without custodial use Qualified Code(s): E11.8 - Type 2 diabetes mellitus with unspecified complications; Z79.4 - half-way (current) use of insulin (2) Hematuria Code(s): R31.9 - HEMATURIA, UNSPECIFIED (3) Hydronephrosis Code(s): N13.30 - UNSPECIFIED HYDRONEPHROSIS Qualifiers: Hydronephrosis type: unspecified Qualified Code(s): N13.30 - Unspecified hydronephrosis (4) Urinary tract obstruction by kidney stone Code(s): N20.0 - CALCULUS OF KIDNEY N13.8 - OTHER OBSTRUCTIVE AND REFLUX UROPATHY (5) Hepatic lesion Code(s): K76.9 - LIVER DISEASE, UNSPECIFIED Assessment/Plan PLAN -- iv antibiotics-- change to PO -- iv fluids dc -- s/p stent placement -- spoke with Pathologist today , possibly HCC- he will need another few more days to confirm with stains. But initial looks HCC. Will consult Oncology for further management. -- continue with meds -- OOB -- PT eval
--- NOTE | 2016-12-05 12:44 | PATH ---
Surgical Pathology Report Patient Name: AJ SORIA [facility]. Rec. #: [id number] /Age/Gender: 1935 (Age: 81) / M Account: [id number] Location: [facility] MED/SURG Taken: 12/01/2016 Received: 12/04/2016 Reported: 12/05/2016 Physicians: Christian Diop M.D. Specimen(s) Received A: BX DUODENUM POLYP B: BX POLYPS TRANSVERSE & ASCENDING COLON Clinical History Liver mass Duodenal polyp, healed gastric ulcer, colon polyps (transverse colon and ascending colon) Final Diagnosis A. DUODENUM, POLYP, BIOPSY: DUODENAL MUCOSA WITH CHRONIC INFLAMMATION, MARKED [place] HYPERPLASIA AND FOCAL GASTRIC METAPLASIA CONSISTENT WITH POLYPOID PEPTIC DUODENITIS. NEGATIVE FOR DYSPLASIA/ADENOMA. B. POLYP, TRANSVERSE AND ASCENDING, POLYPS, POLYPECTOMY: FRAGMENTS OF TUBULAR ADENOMAS. Electronically Signed Jaun Huston M.D. Gross Description A. Received in formalin, labeled "biopsy polyp duodenum" are 2 ochoa, irregular portions of soft tissue measuring 0.2 and 0.3 cm in greatest dimension. The specimens are submitted in toto in one cassette. B. Received in formalin, labeled "biopsy polyps transverse colon and ascending" are 4 ochoa, irregular portions of soft tissue ranging from 0.2-0.3 cm in greatest dimension. The specimens are submitted in toto in one cassette. 12/04/201612/04/2016
--- NOTE | 2016-12-05 17:01 | CONSULT ---
Consult Consult Specialty:: Oncology Referred by:: Dr. Zuluaga/Eduardo Reason for Consultation:: Liver mass- pending path- H.C.C. - History of Present Illness Chief Complaint: Patient presented with hematuria and required cysto and lithotripsy for renal calculi. In the CT evaluation for hematuria, patient was found to have what appears to be 3 distinct liver masses.These included the largest 6 cm in diameter and an apparent satellite measuring 3.0 cm. Patient underwent liver biopsy and official path is pending. Alpha protein is greater than 500 and colonoscopy and EGD are both negative for primary cancers suggesting again that H.C.C is indeed the diagnosis. 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) - Smoking History Smoking history: Current every day smoker Have you smoked in the past 12 months: Yes Aproximately how many cigarettes per day: 40 (formerly up to 3ppd) - Social History Usual Living Arrangement: With Spouse Occupation: former [employer] Home Medications - Allergies Allergies/Adverse Reactions: Allergies Allergy/AdvReac Type Severity Reaction Status Date / Time No Known Allergies Allergy Verified 11/27/16 15:18 - Home Medications Home Medications: Ambulatory Orders Aspirin [ASA] 81 mg PO DAILY 09/25/12 Lisinopril [Prinivil] 10 mg PO DAILY 09/25/12 Atorvastatin Ca [Lipitor] 40 mg PO HS 11/27/16 Metformin HCl [Metformin HCl ER] 500 mg PO BID 11/27/16 Metoprolol Succinate [Toprol Xl] 50 mg PO DAILY 11/27/16 Family Disease History - Family Disease History Family Disease History: Heart Disease: Father, CA: Mother (liver cancer), Sister (uterine), Other: Mother Review of Systems - Review of Systems Constitutional: denies: Night Sweats, Unintentional Wgt. Loss, Weakness, Other Eyes: reports: Blurred Vision. denies: Double Vision HENT: denies: Difficult Swallowing, Epistaxis, Throat Pain Neck: denies: Pain on Movement, Stiffness, Tenderness Cardiovascular: reports: Edema, Shortness of Breath. denies: Chest Pain, Palpitations Respiratory: reports: Exercise Intolerance, SOB, SOB on Exertion Gastrointestinal: reports: Abdominal Pain, Nausea Genitourinary: reports: Hematuria, Urgency, Other (decreased stream) Musculoskeletal: denies: Crepitus, Extremity Pain, Muscle Weakness Integumentary: denies: Bruising, Eczema, Erythema Neurological: reports: No Symptoms Endocrine: reports: No Symptoms Hematology/Lymphatic: denies: Easily Bruised, Excessive Bleeding, Swollen Glands Psychiatric: reports: No Symptoms Physical Exam Vital Signs: Vital Signs Temperature 97.5 F L 12/05/16 14:18 Pulse Rate 52 L 12/05/16 14:18 Respiratory Rate 20 12/05/16 14:18 Blood Pressure 155/78 12/05/16 14:18 O2 Sat by Pulse Oximetry (%) 95 12/05/16 09:00 Constitutional: Yes: Moderate Distress Eyes: Yes: Other (anisocoria) HENT: Yes: Atraumatic, Normocephalic, Other (poor dentition). No: Hoarseness, Pharyngeal Erythema Neck: Yes: Trachea Midline. No: Lymphadenopathy, Tenderness, Thyromegaly Cardiovascular: Yes: Regular Rate and Rhythm, Murmur Respiratory: Yes: Diminished, Rales Gastrointestinal: Yes: Soft. No: Ascites, Hepatomegaly, Splenomegaly Renal/: Yes: Hematuria. No: CVA Tenderness - Right Breast(s): No: Other Musculoskeletal: No: Back Pain, Joint Stiffness Extremities: No: Calf Tenderness, Erythema Edema: LLE: 3+, RLE: 3+ Neurological: Yes: WNL ...Motor Strength: WNL Psychiatric: Yes: WNL Labs: CBC, BMP 12/03/16 06:00 12/03/16 06:00 Imaging - Results Cat Scan: Report Reviewed, Image Reviewed Ultrasound: Report Reviewed, Image Reviewed Problem List - Problems (1) Coronary artery disease Assessment/Plan: Patient is s/p CABG and stenting.He is SOB on minimal exertion. He has orthopnea , with no PND. He has LE edema. His poor cardiac status will make an aggressive approach to his presumed H.C.C. problematic . Code(s): I25.10 - ATHSCL HEART DISEASE OF [place] CORONARY ARTERY W/O ANG PCTRS Qualifiers: Coronary Disease-Associated Artery/Lesion type: [place] artery [place] vs. transplanted heart: [place] heart Associated angina: without angina Qualified Code(s): I25.10 - Atherosclerotic heart disease of [place] coronary artery without angina pectoris
--- NOTE | 2016-12-05 21:16 | PN ---
GI Progress Note Subjective: Patient in bed-mildly dyspneic on nasal O2 - Objective Vital Signs: Vital Signs Temperature 98 F 12/05/16 18:34 Pulse Rate 57 L 12/05/16 18:34 Respiratory Rate 20 12/05/16 20:49 Blood Pressure 145/64 12/05/16 18:34 O2 Sat by Pulse Oximetry (%) 95 12/05/16 20:49 Constitutional: Obese HENT: Yes: Normocephalic Cardiovascular: Yes: Regular Rate and Rhythm Respiratory: Yes: CTA Bilaterally ...Auscultate: Yes: Normoactive Bowel Sounds ...Palpate: Yes: Soft. No: Tenderness Labs: CBC, BMP 12/03/16 06:00 12/03/16 06:00 INR, PTT INR 1.04 (0.82-1.09) 11/28/16 08:40 Assessment/Plan Patient with likely HCC as colon negative for tumor and AFP >500. S/P biopsy with path results pending Discussed with Dr Juarez and agree that he can be evaluated by the [facility] liver team for possible options. Sorafenib may wind up being the most palatable option.
[2016-12-05] MEDS: ATORVASTATIN CA 40 MG TABLET (FP) PO SCH (22:04)
[2016-12-05] MEDS: CEFUROXIME AXETIL 250 MG TABLET PO SCH (22:04)
[2016-12-05] MEDS: ALBUTEROL SO4 0.083% IH SOL 2.5 MG/3 ML VIAL.NEB. NEB PRN (22:05)
[2016-12-05] MEDS: oxyCODONE HCL 5 MG TABLET PO PRN (22:15)
[2016-12-06 05:41] VITALS: PULSE 52
[2016-12-06] MEDS: INSULIN SLIDING SCALE (NOVOLOG) 1 VIAL SQ SCH ×2 (06:03→12:31)
[2016-12-06] MEDS: ALBUTEROL SO4 0.083% IH SOL 2.5 MG/3 ML VIAL.NEB. NEB PRN (08:52)
--- NOTE | 2016-12-06 08:58 | PN ---
Progress Note, Physician Chief Complaint: Events noted Not in distress Pathology reveals well differentiated hepatocellur CA History of Present Illness: Patient was seen and examined. Awake and alert. Chart was reviewed Denies chest pain, SOB or palpitations - Current Medication List Current Medications: Active Medications Acetaminophen (Tylenol -) 650 mg PO Q6H PRN PRN Reason: FEVER OR PAIN Last Admin: 12/01/16 21:59 Dose: 650 mg Albuterol Sulfate (Ventolin 0.083% Nebulizer Soln -) 1 amp NEB Q6H PRN PRN Reason: SHORT OF BREATH/WHEEZING Last Admin: 12/06/16 08:52 Dose: 1 amp Atorvastatin Calcium (Lipitor -) 40 mg PO HS [facility] Last Admin: 12/05/16 22:04 Dose: 40 mg Cefuroxime Axetil (Ceftin -) 500 mg PO BID [facility] Last Admin: 12/05/16 22:04 Dose: 500 mg Docusate Sodium (Colace -) 100 mg PO Q8H PRN PRN Reason: CONSTIPATION Insulin Aspart (Novolog Vial Sliding Scale -) 0 vial SQ TIDAC [facility] PRN Reason: Protocol Last Admin: 12/06/16 06:03 Dose: Not Given Lisinopril (Prinivil) 10 mg PO BID [facility] Last Admin: 12/05/16 22:03 Dose: 10 mg Metoprolol Succinate (Toprol Xl -) 50 mg PO DAILY [facility] Last Admin: 12/05/16 09:39 Dose: 50 mg Oxycodone HCl (Roxicodone -) 5 mg PO Q6H PRN PRN Reason: PAIN Last Admin: 12/05/16 22:15 Dose: 5 mg - Objective Vital Signs: Vital Signs Temperature 98.1 F 12/06/16 05:39 Pulse Rate 52 L 12/06/16 05:39 Respiratory Rate 20 12/06/16 05:39 Blood Pressure 126/56 12/06/16 05:39 O2 Sat by Pulse Oximetry (%) 95 12/05/16 20:49 Neck: Yes: Supple Cardiovascular: Yes: Regular Rate and Rhythm, S1, S2 Respiratory: Yes: Diminished Gastrointestinal: Yes: Normal Bowel Sounds, Soft. No: Tenderness Edema: Yes Edema: LLE: Trace, RLE: Trace Problem List - Problems (1) Coronary artery disease Code(s): I25.10 - ATHSCL HEART DISEASE OF [place] CORONARY ARTERY W/O ANG PCTRS Qualifiers: Coronary Disease-Associated Artery/Lesion type: [place] artery [place] vs. transplanted heart: [place] heart Associated angina: without angina Qualified Code(s): I25.10 - Atherosclerotic heart disease of [place] coronary artery without angina pectoris (2) Diabetes Code(s): E11.9 - TYPE 2 DIABETES MELLITUS WITHOUT COMPLICATIONS Qualifiers: Diabetes mellitus type: type 2 Diabetes mellitus complication status: with unspecified complications Diabetes mellitus halfway insulin use: without halfway use Qualified Code(s): E11.8 - Type 2 diabetes mellitus with unspecified complications; Z79.4 - [facility] (current) use of insulin (3) Hematuria Code(s): R31.9 - HEMATURIA, UNSPECIFIED (4) Hepatic lesion Code(s): K76.9 - LIVER DISEASE, UNSPECIFIED (5) Hypertensive cardiovascular disease Code(s): I11.9 - HYPERTENSIVE HEART DISEASE WITHOUT HEART FAILURE Qualifiers: Heart failure presence: without heart failure Qualified Code(s): I11.9 - Hypertensive heart disease without heart failure (6) Status post coronary artery bypass graft Code(s): Z95.1 - PRESENCE OF AORTOCORONARY BYPASS GRAFT (7) Status post coronary artery stent placement Code(s): Z95.5 - PRESENCE OF CORONARY ANGIOPLASTY IMPLANT AND GRAFT (8) Status post laser lithotripsy of ureteral calculus Code(s): Z98.890 - OTHER SPECIFIED POSTPROCEDURAL STATES (9) Urinary tract obstruction by kidney stone Code(s): N20.0 - CALCULUS OF KIDNEY N13.8 - OTHER OBSTRUCTIVE AND REFLUX UROPATHY (10) Liver mass Code(s): R16.0 - HEPATOMEGALY, NOT ELSEWHERE CLASSIFIED (11) Hepatocellular carcinoma Code(s): C22.0 - LIVER CELL CARCINOMA Assessment/Plan 1. Post cystoscopy, left ureteroscopic laser lithotripsy and JJ stent insertion for 8 mm distal ureteral calculus w hydronephrosis and hematuria 2. CAD s/p PCI (stent), CABG, angina pectoris 3. HTN/HCVD 4. Type 2 DM 5. Hyperlipidemia 6. Complete LBBB 7. Liver mass c/w hepatocellur CA PLAN: 1. Analgesia as needed, IV hydration and empiric antibiotics 2. Continue Lisinopril 10 mg qd, Lipitor 40 mg qd and Toprol XL 50 mg qd - ASA to be restarted if possible 3. May undergo further cardiovascular evaluation as outpatient including echocardiography and nuclear myocardial perfusion imaging 4. DVT prophylaxis 5. Oncology input noted Further plans are to follow Marvin Wise MD
[2016-12-06] MEDS ORDERED: PT OWN MED DRAWER 7, Y5N ONE (10:41)
[2016-12-06] MEDS: CEFUROXIME AXETIL 250 MG TABLET PO SCH (10:44)
[2016-12-06] MEDS: LISINOPRIL 10 MG TABLET (FP) PO SCH (10:45)
[2016-12-06] MEDS: METOPROLOL SUCCINATE 50 MG TAB.SR.24H (FP) PO SCH (10:45)
--- NOTE | 2016-12-06 11:16 | DS ---
Physical Examination Vital Signs: Vital Signs Temperature 98.1 F 12/06/16 05:39 Pulse Rate 52 L 12/06/16 05:39 Respiratory Rate 20 12/06/16 05:39 Blood Pressure 126/56 12/06/16 05:39 O2 Sat by Pulse Oximetry (%) 95 12/05/16 20:49 Constitutional: Yes: No Distress, Calm Cardiovascular: Yes: Regular Rate and Rhythm Labs: CBC, BMP 12/03/16 06:00 12/03/16 06:00 Discharge Summary Reason For Visit: HYDRONEPHROSIS,HEMATURIA,DIABETES MELLITUS, Current Active Problems Coronary artery disease (Acute) Diabetes (Acute) Fall (Acute) Hematuria (Acute) Hepatic lesion (Acute) Hydronephrosis (Acute) Hyperlipidemia associated with type 2 diabetes mellitus (Acute) Hypertensive cardiovascular disease (Acute) Liver mass (Acute) Liver neoplasm (Acute) Pre-operative cardiovascular examination (Acute) Status post coronary artery bypass graft (Acute) Status post coronary artery stent placement (Acute) Status post laser lithotripsy of ureteral calculus (Acute) Urinary tract obstruction by kidney stone (Acute) Hospital Course: ER HISTORY - History of Present Illness Initial Comments: 11/27/16 18:07 The patient is a 72 year old male, with a significant past medical history of non-insulin dependent diabetes, hypertension, CAD s/p stents x2 s/p CABG x 3 ( 2012), hyperlipidemia, BPH, and osteoarthritis, who presents to the emergency department with hematuria noticed 4 days ago and left lower quadrant abdominal pain today. The patient reports noticing blood in his urine 4 days ago, but denies any hematuria since. The patient reports experiencing intermittent LLQ pain prior to the hematuria, but was prompted to come to the ED when the LLQ pain returned today. The patient denies any flank pain or radiation of pain to his groin. He reports his last normal BM was yesterday. He denies chest pain, shortness of breath, headache and dizziness. He denies fever, chills, nausea, vomit, diarrhea and constipation. He denies dysuria, frequency, urgency. Allergies: NKDA Social history: daily 1.5 pack tobacco smoker +65 years, occasional alcohol consumption PCP - Dr. Symone Lin Pt seen by me on the floors H/O CAD, LBBB, HTN, COPD, DM, BPH admitted for abd pain and hematuria. Today has less pain CT abd/pelvis shows distal left ureteral obstructing stone History Source: Patient Limitations to Obtaining History: No Limitations HOSPITALIZATION COURSE Pt was seen by Dr Dickey- Urology for left ureteral stone. He was cleared cardiac max with Dr Wise to undergo lithotripsy and stent placement 11/29/16 CT abd/pelvis noted pt to have large liver mass- ultrasound confirmed the mass. AFP - 541 CEA 5.8 Pt was seen by GI- Dr Diop and Oncology- Dr Juarez He underwent liver biopsy on 12/04/16. I sppoke with the pathologist 12/05-- prelim looks Hepatocellular CA He will need a few days to confirm with stains and will have original report Pt is aware of liver mass and possible malignancy he will need cardiac stress test, cardiac cath as outpt per rubber down Will dc pt home, he has an appt with Maurice Salazar- liver transplant service on December 12- 2:15pm Condition: Stable - Instructions Referrals: Maurice Ramirez MD [Staff Physician] - 2 Weeks Symone Lin MD [Primary Care Provider] - 1 Week Disposition: HOME - Home Medications Comprehensive Discharge Medication List: Ambulatory Orders Aspirin [ASA] 81 mg PO DAILY 09/25/12 Lisinopril [Prinivil] 10 mg PO DAILY 09/25/12 Atorvastatin Ca [Lipitor] 40 mg PO HS 11/27/16 Metformin HCl [Metformin HCl ER] 500 mg PO BID 11/27/16 Metoprolol Succinate [Toprol Xl] 50 mg PO DAILY 11/27/16
[2016-12-06 15:02] VITALS: BP 146/75; TEMP 97.7
--- NOTE | 2016-12-06 15:21 | PATH ---
Surgical Pathology Report Patient Name: AJ SORIA Med. Rec. #: [id number] /Age/Gender: 1935 (Age: 81) / M Account: [id number] Location: [facility] MED/SURG Taken: 12/04/2016 Received: 12/04/2016 Reported: 12/06/2016 Physicians: Dedrick Chua M.D. Carey Clark M.D. Tristen Juarez M.D. Specimen(s) Received LIVER BIOPSY Clinical History 81-year-old male with incidental finding of large liver mass on CT scan. Patient has no known primary cancer Final Diagnosis LIVER, US GUIDED CORE BIOPSY: CONSISTENT WITH WELL DIFFERENTIATED HEPATOCELLULAR CARCINOMA (SEE COMMENT). Comment: The biopsy shows fragments of a well differentiated epithelial neoplasm composed of cells with low to moderate N:C ratio and eosinophilic cytoplasm arranged in nested pattern, by capillaries lined by endothelial cells. Immunohistochemical stains performed and interpreted [facility] show the tumor cells are negative for CK7 and CK20 immunostains. Reticulin stain shows decreased reticulin fibers with increased thickness epithelial cell nests. Additional immunohistochemical stains performed at the [facility], [place], [place] ([id number]) and interpreted at [facility] show the tumor cells are positive for Glyican-3 and Arginase-1 immunostains, focally positive for CAM5.2; negative for ER; pCEA is positive with canalicular pattern, CD34 highlights capillary with endothelial cells. The morphologic findings and the immunoprofile are consistent with well differentiated hepatocellular carcinoma. Clinical, serologic and imaging correlations are suggested. The case was preliminary discussed with Dr. Clark on 12/05/16. Electronically Signed Jaun Huston M.D. Gross Description Received in formalin labeled "liver biopsy" are 7 ochoa cylindrical portions of soft tissue ranging from 0.3-0.7 cm in length and averaging 0.1 cm in diameter. The specimens are submitted in toto in one cassette. 12/04/201612/04/2016
[2016-12-08 00:10] LABS: COLOR Orange (.); URIC ACID 100 % (.)
== END 2016-12-06 16:32 | disposition home or self-care (01) | DRG 669 ==
LOC: JER 15:15 → JERBED 20:20 → J7W 23:30
PROVIDERS: ADMIT Internal Medicine; ATTEND Internal Medicine
PROC: 0T778DZ Dilation of Left Ureter with Intraluminal Device, Via Natural or Artificial Opening Endoscopic (ICD-10-PCS; principal; 2016-11-29 13:00)
PROC: 0TC78ZZ Extirpation of Matter from Left Ureter, Via Natural or Artificial Opening Endoscopic (ICD-10-PCS; 2016-11-29 13:00)
PROC: 0DB98ZX Excision of Duodenum, Via Natural or Artificial Opening Endoscopic, Diagnostic (ICD-10-PCS; 2016-12-01)
PROC: 0DBE8ZX Excision of Large Intestine, Via Natural or Artificial Opening Endoscopic, Diagnostic (ICD-10-PCS; 2016-12-01)
PROC: 0FB13ZX Excision of Right Lobe Liver, Percutaneous Approach, Diagnostic (ICD-10-PCS; 2016-12-04)
DX: N13.2 Hydronephrosis with renal and ureteral calculous obstruction (principal); C22.8 Malignant neoplasm of liver, primary, unspecified as to type; I11.9 Hypertensive heart disease without heart failure; I25.10 Atherosclerotic heart disease of native coronary artery without angina pectoris; K21.9 Gastro-esophageal reflux disease without esophagitis; E11.9 Type 2 diabetes mellitus without complications; I44.7 Left bundle-branch block, unspecified; J44.9 Chronic obstructive pulmonary disease, unspecified; M19.90 Unspecified osteoarthritis, unspecified site; K31.7 Polyp of stomach and duodenum; R16.0 Hepatomegaly, not elsewhere classified; K63.5 Polyp of colon; K64.8 Other hemorrhoids; N40.0 Benign prostatic hyperplasia without lower urinary tract symptoms; F17.210 Nicotine dependence, cigarettes, uncomplicated; Z95.1 Presence of aortocoronary bypass graft; Z95.5 Presence of coronary angioplasty implant and graft; W18.30XA Fall on same level, unspecified, initial encounter; Y93.89 Activity, other specified; Y92.238 Other place in hospital as the place of occurrence of the external cause
CPT/HCPCS: 36415; 70450-TC; 71020-TC; 73523-TC; 74177-TC; 76000-TC; 76705-TC; 76942-TC; 80053; 81003; 81015; 82105; 82360; 82378; 83690; 85025; 85027; 85610; 85730; 86301; 86704; 86705; 86706; 86707; 87086; 87340; 87350; 87899; 88300-TC; 88305-TC; 88307-TC; 88341-TC; 93005; 93010; 94640; 94760; 97116-GP; 97161-GP; 99282-25; J1644; Q9967